=== PATIENT | female | born 1985 | race Caucasian/White ===

== ENCOUNTER 2021-06-16 08:48 | Emergency (ER) | payer OTHER ==
[2021-06-16 09:14] LABS: Hematocrit 43.2 % (36.0-45.0); Lymphocytes % 26.3 % (15.3-44.8); MPV 8.9 fL (7.6-11.3); RBC Red Blood Cell Count 4.96 M/uL (3.86-4.86)
[2021-06-16] MEDS ORDERED: MORPHINE 4 MG/ML SYR ONE ×2 (09:17→14:33)
[2021-06-16] MEDS ORDERED: ONDANSETRON 4 MG/2 ML VIAL ONE (09:17)
[2021-06-16 09:32] LABS: Bilirubin Direct 0.1 mg/dL (0-0.2); Bilirubin Total 0.6 mg/dL (0.2-1.0); Potassium 3.4 mmol/L (3.5-5.1); Protein, Total 8.2 g/dL (6.4-8.2)
[2021-06-16 10:23] LABS: Urine Blood 2+ (Negative); Urine Glucose Negative (Negative); Urine Protein Negative (Negative); Urine Specific Gravity 1.025 (1.005-1.030); Urine pH 5.5 (5.0-7.0)
--- NOTE | 2021-06-16 10:42 | RAD REPORT ---
EXAM DESCRIPTION: CT - Stone Protocol - 06/16/2021 10:28 am CLINICAL HISTORY: Flank pain. FLANK PAIN COMPARISON: No comparisons TECHNIQUE: Axial images were obtained without oral or IV contrast. Lack of contrast limits solid org an and vascular assessment. The [id number] spans the entirety of the system partially obscuring uppermost abdomen and lung bases. Coronal reformatted images were obtained and reviewed. All CT scans are performed using dose optimization technique as appropriate and may include automated exposure control or mA/KV adjustment according to patient size. FINDINGS: The lower lung montilla are clear. Imaged portions of the liver and spleen show no suspicious findings on non-contrast imaging. The panc reas and adrenal glands are normal. No pathologic lymphadenopathy in the abdomen or pelvis. Punctate stone is present in the inferior calyx left kidney. No additional tract stone or hydronep hrosis. No bowel obstruction, free air, free fluid or abscess. Normal appendix noted. No significant bony abnormality. IMPRESSION: Punctate calculus inferior left kidney without hydronephrosis.
[2021-06-16 10:53] LABS: Urine Specific Gravity/Preg 1.025 (1.005-1.030)
[2021-06-16] MEDS ORDERED: KETOROLAC 30 MG/ML INJ ONE (11:31)
[2021-06-16] MEDS ORDERED: DIAZEPAM 10 MG/2 ML INJ SYRINGE ONE (11:32)
--- NOTE | 2021-06-16 14:16 | RAD REPORT ---
EXAM DESCRIPTION: CT - Chest For Pe Angio - 06/16/2021 1:46 pm CLINICAL HISTORY: Chest pain. left sided sub scapular pain, sob COMPARISON: <Comparisons> TECHNIQUE: CT angiogram of the pulmonary arteries was performed with MIP. All CT scans are performed using dose optimization technique as appropriate and may include automated exposure control or mA/KV adjustment according to patient size. FINDINGS: No evidence of pulmonary thromboembolism. No acute aortic finding demonstrated. The lungs are clear. No significant pericardial or pleural fluid. No concerning bony finding. Fatty liver noted. IMPRESSION: No evidence of pulmonary thromboembolism. No acute lung findings.
--- NOTE | 2021-06-16 14:41 | EDPHYS ---
Physician Documentation [facility] Name: Adela Jaime Age: 35 yrs Sex: Female : 1985 Arrival Date: 06/16/2021 Time: 08:52 Bed 18 Private MD: ED Physician Herbert Terrazas HPI: 06/16 08:55 This 35 yrs old Female presents to ER via Ambulatory with complaints of Low Back Pain. [facility] 08:55 The patient presents with pain that is acute. The symptoms are located in the left jmm scapular area, left subscapular area and left mid back. Onset: The symptoms/episode began/occurred gradually, 1 day(s) ago. Modifying factors: The patient symptoms are alleviated by nothing, the patient symptoms are aggravated by any movement. This is a 35-year-old female with history of hypertension the presents emerged part with complaints of left-sided flank pain which radiates into the left lower quadrant of her abdomen. Denies vomiting, diarrhea, previous history of kidney stone.. 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 - Social history:: Smoking status: Patient denies any tobacco usage or history of. ROS: 08:55 Constitutional: Negative for fever, chills, and weight loss, Cardiovascular: Negative jmm for chest pain, palpitations, and edema, Respiratory: Negative for shortness of breath, cough, wheezing, and pleuritic chest pain. 08:55 Back: Positive for pain with movement. 08:55 All other systems are negative. Exam: 08:55 Head/Face: atraumatic. Eyes: EOMI, no conjunctival erythema appreciated ENT: Moist jmm Mucus Membranes Neck: Trachea midline, Supple Chest/axilla: Normal chest wall appearance and motion. Cardiovascular: Regular rate and rhythm. No edema appreciated Respiratory: Normal respirations, no respiratory distress appreciated 08:55 Abdomen/GI: Non distended, soft Back: Normal ROM Skin: General appearance color normal MS/ Extremity: Moves all extremities, no obvious deformities appreciated, no edema noted to the lower extremities Neuro: Awake and alert Psych: Behavior is normal, Mood is normal, Patient is cooperative and pleasant 08:55 Constitutional: The patient appears alert, awake, anxious, uncomfortable. 08:55 Abdomen/GI: Inspection: abdomen appears normal, Bowel sounds: normal, Palpation: abdomen is soft and non-tender, in the left lower quadrant. Vital Signs: 08:57 BP 184 / 120; Pulse 83; Resp 18; Temp 98.2; Pulse Ox 100% on R/A; Weight 129.27 kg; ph Height 5 ft. 0 in. 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 [facility] 13:27 ED course: Upon reevaluation the patient, she began to complain of left upper thoracic jmm pain which would radiate into the left lower part of her chest. States she had this pain all along and was recently driven from [place]. States having some mild shortness of breath as well. Will get a CTA for further evaluation.. 14:39 Data reviewed: vital signs, nurses notes. Counseling: I had a detailed discussion with katey the patient and/or guardian regarding: the historical points, exam findings, and any diagnostic results supporting the discharge/admit diagnosis, the need for outpatient follow up, to return to the emergency department if symptoms worsen or persist or if there are any questions or concerns that arise at home. 06/16 08:55 Order name: Basic Metabolic Panel; Complete Time: 09:38 [facility] 06/16 08:55 Order name: CBC with Diff; Complete Time: 09:38 [facility] 06/16 08:55 Order name: Hepatic Function; Complete Time: 09:38 [facility] 06/16 08:55 Order name: Lipase; Complete Time: 09:38 [facility] 06/16 10:22 Order name: Urine Dipstick-Ancillary; Complete Time: 10:27 [facility] 06/16 10:29 Order name: Urine --Ancillary (enter results); Complete Time: 10:54 eb 06/16 08:55 Order name: IV Saline Lock; Complete Time: 09:10 [facility] 06/16 10:17 Order name: CT Stone Protocol; Complete Time: 10:43 [facility] 06/16 13:27 Order name: CT Chest For PE Angio; Complete Time: 14:30 [facility] 06/16 08:55 Order name: Labs collected and sent; Complete Time: 09:10 [facility] 06/16 08:55 Order name: Urine Dipstick-Ancillary (obtain specimen); Complete Time: 10:24 [facility] 06/16 08:55 Order name: Urine Test (obtain specimen); Complete Time: 10:24 jm Administered Medications: 09:15 Drug: Zofran (Ondansetron) 4 mg Route: IVP; Site: right antecubital; jg9 09:45 Follow up: Response: No adverse reaction; Nausea is decreased jg9 09:19 Drug: morphine 4 mg {Note: RASS-0.} Route: IVP; Site: right antecubital; jg9 09:30 Follow up: Response: No adverse reaction; Pain is decreased jg9 11:35 Drug: Ketorolac 30 mg Route: IVP; Site: right antecubital; jg9 12:00 Follow up: Response: No adverse reaction; No change in condition jg9 11:37 Drug: Valium (diazepam) 2 mg {Note: RASS-0.} Route: IVP; Site: right antecubital; jg9 12:30 Follow up: Response: No adverse reaction; No change in condition jg9 14:36 Drug: morphine 4 mg {Note: RASS-0.} Route: IVP; Site: right antecubital; jg9 Point of Care Testing: Urine : 10:24 hCG Reading: Negative; Control Reading: Positive; jg9 Disposition: 21:23 Co-signature as Attending Physician, Herbert Terrazas DO I agree with the assessment and ms3 plan of care. Disposition Summary: 06/16/21 14:40 Discharge Ordered Location: Home jmm Condition: Stable jmm Diagnosis - Strain of muscle and tendon of back wall of thorax jmm - Strain of muscle, fascia and tendon of lower back jmm Followup: jmm - With: Private Physician - When: 2 - 3 days - Reason: Recheck today's complaints, Continuance of care, Re-evaluation by your physician Discharge Instructions: - Discharge Summary Sheet jm - Thoracic Strain jmm - Low Back Sprain or Strain Rehab-SportsMed jm Forms: - Medication Reconciliation Form [facility] - Thank You Letter jmm - Antibiotic Education jmm - Prescription Opioid Use jm Prescriptions: - Zanaflex 4 mg Oral Tablet - take 1 tablet by ORAL route every 8 hours As needed; 20 tablet; Refills: 0, jm Product Selection Permitted - Diclofenac Sodium 75 mg Oral Tablet Sustained Release - take 1 tablet by ORAL route 2 times per day; 30 tablet; Refills: 0, Product [facility] Selection Permitted Signatures: Dispatcher [employer] Larry Feliciano PA PA jmm Hall, Patricia, RN RN Herbert Lorenzana DO DO ms3 Khushi Stone RN RN jg9
--- NOTE | 2021-06-16 14:41 | ER ---
Nurse's Notes [facility] Name: Adela Jaime Age: 35 yrs Sex: Female : 1985 Arrival Date: 06/16/2021 Time: 08:52 Bed 18 Private MD: Diagnosis: Strain of muscle and tendon of back wall of thorax;Strain of muscle, fascia and tendon of lower back Presentation: 06/16 08:57 Chief complaint: Patient states: L mid back pain that radiates to abdomen, also reports ph trouble urinating and nausea, denies fever V/D. Coronavirus screen: Vaccine status: Patient reports being unvaccinated. Ebola Screen: No symptoms or risks identified at this time. Initial Sepsis Screen: Does the patient meet any 2 criteria? No. Patient's initial sepsis screen is negative. Does the patient have a suspected source of infection? No. Patient's initial sepsis screen is negative. Risk Assessment: Do you want to hurt yourself or someone else? Patient reports no desire to harm self or others. Onset of symptoms was June 16, 2021. 08:57 Method Of Arrival: Ambulatory ph 08:57 Acuity: TARA 2 ph Triage Assessment: 09:11 General: Appears in no apparent distress. Behavior is calm. Pain: Complains of pain in jg9 back-right flank Pain currently is 9 out of 10 on a pain scale. 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 - Social history:: Smoking status: Patient denies any tobacco usage or history of. Screenin:10 Abuse screen: Denies threats or abuse. Denies injuries from another. Nutritional jg9 screening: No deficits noted. Tuberculosis screening: No symptoms or risk factors identified. Fall Risk None identified. Assessment: 09:51 Reassessment: Patient reports her pain subsided just a little, she is now a 8/10. jg9 Vital Signs: 08:57 BP 184 / 120; Pulse 83; Resp 18; Temp 98.2; Pulse Ox 100% on R/A; Weight 129.27 kg; ph Height 5 ft. 0 in. 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 rg4 08:52 Larry Mendes PA is PHCP. [facility] 08:52 Herbert Terrazas DO is Attending Physician. [facility] 08:56 Khushi Stone, GRACE is Primary Nurse. j9 08:59 Triage completed. ph 08:59 Arm band placed on Patient placed in an exam room. ph 09:00 Patient has correct armband on for positive identification. Bed in low position. Call [facility] in reach. 09:07 Initial lab(s) drawn, by me, sent to lab. Inserted saline lock: 20 gauge in right dh3 antecubital area, using aseptic technique. Blood collected. 10:28 CT Stone Protocol In Process Unspecified. EDMS 13:20 No apparent distress. Resting quietly. Awaiting lab results, Awaiting radiology results.j9 13:45 CT Chest For PE Angio In Process Unspecified. EDMS 14:28 Resting quietly. Patient requests pain medication. jg9 14:42 No provider procedures requiring assistance completed. jg9 14:43 IV discontinued. jg9 Administered Medications: 09:15 Drug: Zofran (Ondansetron) 4 mg Route: IVP; Site: right antecubital; jg9 09:45 Follow up: Response: No adverse reaction; Nausea is decreased jg9 09:19 Drug: morphine 4 mg {Note: RASS-0.} Route: IVP; Site: right antecubital; jg9 09:30 Follow up: Response: No adverse reaction; Pain is decreased jg9 11:35 Drug: Ketorolac 30 mg Route: IVP; Site: right antecubital; jg9 12:00 Follow up: Response: No adverse reaction; No change in condition jg9 11:37 Drug: Valium (diazepam) 2 mg {Note: RASS-0.} Route: IVP; Site: right antecubital; jg9 12:30 Follow up: Response: No adverse reaction; No change in condition jg9 14:36 Drug: morphine 4 mg {Note: RASS-0.} Route: IVP; Site: right antecubital; jg9 Point of Care Testing: Urine : 10:24 hCG Reading: Negative; Control Reading: Positive; jg9 Outcome: 14:40 Discharge ordered by MD. [place] 14:43 Discharged to home ambulatory. jg9 14:43 Condition: stable 14:43 Discharge instructions given to patient, Instructed on discharge instructions, follow up and referral plans. Demonstrated understanding of instructions, follow-up care. 14:54 Patient left the ED. jg9 Signatures: Dispatcher [employer] EDMS Larry Mendes PA PA jmm Hall, Patricia, RN RN ph Garcia, Rubi 4 Sabine Crawford 3 Khushi Stone RN RN jg9
[2021-06-16 15:14] VITALS: BP 188/99; O2SAT 99
[2021-06-16 15:15] VITALS: TEMP 98.2
== END 2021-06-16 14:54 | disposition home or self-care (01) ==
LOC: ER 08:48
DX: S39.012A Strain of muscle, fascia and tendon of lower back, initial encounter (principal); S29.012A Strain of muscle and tendon of back wall of thorax, initial encounter; I10 Essential (primary) hypertension
CPT/HCPCS: 85025; 80048; 36415; 81025; 80076; 81003; 83690; 76377; 71275; 74176; 96375; 96374; 99284; Q9967; J3360; J2405

== ENCOUNTER 2021-11-01 08:42 | Emergency (ER) | payer OTHER ==
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
[2021-11-01 09:24] VITALS: BP 152/116; TEMP 97.8; O2SAT 99
== END 2021-11-01 09:10 | disposition home or self-care (01) ==
LOC: ER 08:42
DX: L55.9 Sunburn, unspecified (principal); T31.0 Burns involving less than 10% of body surface; R21 Rash and other nonspecific skin eruption
CPT/HCPCS: 99282

== ENCOUNTER 2022-01-11 08:36 | Day surgery (SDC) | payer OTHER ==
--- NOTE | 2022-01-07 09:28 | RAD REPORT ---
EXAM DESCRIPTION: RAD - Chest Pa And Lat (2 Views) - 01/07/2022 9:22 am CLINICAL HISTORY: pre op for surgery Chest pain. COMPARISON: Chest For Pe Angio dated 06/16/2021 FINDINGS: The lungs are clear. The heart is normal in size. No displaced fractures. IMPRESSION: No acute or concerning finding suspected.
[2022-01-07 09:35] LABS: Absolute Lymphocytes (CBC) 2.3 K/uL (0.7-4.9); Hematocrit 38.2 % (36.0-45.0); Lymphocytes % 32.4 % (15.3-44.8); MCV 86.7 fL (80-100); MPV 8.7 fL (7.6-11.3); RBC Red Blood Cell Count 4.41 M/uL (3.86-4.86)
[2022-01-07 09:47] LABS: Protime INR 1.28
[2022-01-07 09:48] LABS: Potassium 3.6 mmol/L (3.5-5.1)
[2022-01-07 09:58] LABS: SARS-CoV-2 Antigen Rapid Res Negative (Negative)
--- NOTE | 2022-01-09 06:38 | EKG ---
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
[2022-01-11] MEDS ORDERED: Ringers Lactate 1,000 ML IV ONE (09:07)
[2022-01-11] MEDS ORDERED: MIDAZOLAM HCL 2 MG/2 ML INJ ONE (10:14)
[2022-01-11] MEDS ORDERED: propofoL 200 MG/20 ML VIAL IV ONE (10:14)
[2022-01-11] MEDS ORDERED: dexAMETHasone 10 MG/ML VIAL ONE (10:14)
[2022-01-11] MEDS ORDERED: FENTANYL CITR 100 MCG/2 ML ONE (10:14)
[2022-01-11] MEDS ORDERED: KETOROLAC 30 MG/ML INJ ONE (10:15)
[2022-01-11] MEDS ORDERED: ONDANSETRON 4 MG/2 ML VIAL ONE (10:15)
[2022-01-11] MEDS ORDERED: LIDOCAINE 2% MPF 5 ML VIAL ONE (10:15)
[2022-01-11] MEDS ORDERED: CEFAZOLIN 2 GM IN 0.9% NACL 2 GM/100 ML BAG ONE (10:23)
[2022-01-11] MEDS ORDERED: BUPIVACAINE 0.25% PF 10 ML VIAL ONE ×2 (10:33→11:30)
--- NOTE | 2022-01-11 11:36 | P.BOP ---
Preoperative diagnosis: right carpal tunnel syndrome Postoperative diagnosis: same Primary procedure: right open carpal tunnel release Verifying Specialist: NONE,NONE Estimated blood loss: 3 cc Specimen: none Findings: see dictation Anesthesia: General Complications: None Implants: none Fluids & blood products: per anesthesia record Transferred to: Recovery Room Condition: Good
[2022-01-11] MEDS ORDERED: HYDROMORPHONE HCL 1 MG/ML INJ IV ONE ×2 (11:54→12:10)
[2022-01-11] MEDS ORDERED: HYDROMORPHONE HCL 1 MG/ML INJ ONE ×2 (12:03→12:20)
[2022-01-11 12:58] VITALS: BP 120/73; TEMP 98.1; O2SAT 95
[2022-01-11] MEDS ORDERED: HYDROCODONE/APAP 10/325 TAB ONE (12:59)
--- NOTE | 2022-01-12 03:57 | OP ---
Date of Procedure: 01/11/2022 Surgeon: Arturo Rubio MD Preoperative Diagnosis: Right carpal tunnel syndrome. Postoperative Diagnosis: Right carpal tunnel syndrome. Procedure Performed: Right open carpal tunnel release. Anesthesia: General LMA. Fluids: Per Anesthesia record. Estimated Blood Loss: 3 cc. Complications: None. Implants: None. Tourniquet Time: 17 minutes at 250 mmHg. Indication For Procedure: Adela is a 36-year-old female who presented to my clinic with signs, sym ptoms and EMG findings consistent with severe bilateral carpal tunnel syndrome. Her right was more s ymptomatic than the left so we will proceed with the right. Risks and benefits associated with the p rocedure were discussed with the patient at length and she expressed understanding and elected to pro ceed with operative treatment. Description Of Procedure: After informed consent was obtained, the patient was identified in the pre operative holding area and the right upper extremity was marked. The patient was then brought back t o the operating room, transferred the operative table in supine fashion, and placed under general LMA anesthesia. The right upper extremity was then prepped and draped in usual sterile fashion. A time -out was initiated. The correct patient and procedure confirmed and identified. The patient did rec eive her preoperative prophylactic antibiotics. The right upper extremity was then exsanguinated and tourniquet was inflated to 250 mmHg. Approximately, a 3 cm longitudinal incision was made just ulna r to the thenar crease. Dissection was then taken down to the palmar fascia. A Aurora elevator was p laced deep to the palmar fascia and transverse carpal ligament to protect the median nerve at all chela es. A 15 blade was then used to release the palmar fascia and transverse carpal ligament with the me mila nerve protected by the Aurora elevator at all times. Blunt-tip Metzenbaums were then used to rel ease any remaining fascial bands with the tips aimed superficially to protect the median nerve at all times. The wound was then irrigated thoroughly with normal saline. The skin was approximated using a 5-0 Prolene. Sterile dressings were applied. Tourniquet was let down. The patient was awakened and transferred back in stable condition. Postoperative Plan: The patient will be nonweightbearing to right upper extremity. She will follow up in 1 week for wound check and suture removal. CV/MODL Voice ID: [id number] Report ID: [id number]
== END 2022-01-11 13:23 | disposition home or self-care (01) ==
LOC: OR 08:36
PROVIDERS: ATTEND Orthopaedic Surgery Sports Medicine
PROC: 01N50ZZ Release Median Nerve, Open Approach (ICD-10-PCS; principal; 2022-01-11 10:30)
DX: G56.01 Carpal tunnel syndrome, right upper limb (principal); E11.9 Type 2 diabetes mellitus without complications; I10 Essential (primary) hypertension; Z20.822 Contact with and (suspected) exposure to COVID-19
CPT/HCPCS: 93005; 85025; 80048; 36415; 81025; 85610; 85730; 71046; 87811; 64721; J2704; J2001; J2250; J3010; J1100; J1170 ×4; J0690; J7120; J2405

== ENCOUNTER 2022-01-17 17:40 | Emergency (ER) | payer OTHER ==
--- OUTSIDE RECORDS SUMMARY | 2022-01-17 17:44 | XMS REPORT | Continuity of Care Document ---
:1985 Author Organization [facility] t Address [address] [place] [address] Care Team Providers Name Role Phone SINDI JIMENEZ Primary Care Physician Unavailable Sindi Jimenez Attending Clinician Unavailable KENNETH SCHMITZ Attending Clinician Unavailable Kenneth Schmitz MD Attending Clinician Doctor Unassigned, [facility] Attending Clinician Unavailable VIC TONG Attending Clinician Unavailable Vic Melchor Attending Clinician SARAH SHAH Attending Clinician Unavailable Sarah Shah MD Attending Clinician YENNY KELLER Admitting Clinician Unavailable Payers Payer Name Policy Type Policy Number Effective Date Expiration Date [place] [address] [id number] [facility] [id number] 2021 00:00:00 Problems Condition Condition Condition Status Onset Resolution Last Treating Co mments Source Name Details Category Date Date Treatment Clinician Date No known No known Disease Unive rs active active ity of problems problems [facility] [id number] Migraine Problem Common with aura Spirit and [facility] without [facility] migrainosu Medica l s, not Center intractabl e [id number] Primary Problem Common insomnia [facility] [id number] Morbid Problem Commo n 9104 (severe) Spirit obesity - CHI due to [facility] [id number] [place] [address] tunnel [facility] syndrome - [facility] of right [facility] [id number] [place] [address] tunnel Spirit syndrome - [facility] of left wrist [facility] [id number] OSKAR Problem Common (generaliz Spirit ed anxiety - CHI disorder) [facility] [id number] Essential Problem Comm on (primary) Spirit hypertensi - CHI on [facility] [id number] Body mass Problem Com mon index Spirit [BMI] - CHI 50.0-59.9, [facility] [id number] Bilateral Problem Comm on carpal Spirit tunnel - [facility] syndrome [facility] Allergies, Adverse Reactions, Alerts Allergy Allergy Status Severity Reaction(s) Onset Inactive Treating Comm ents Source Name Type Date Date Clinician NO KNOWN Drug Active Univers ALLERGIE Class ity of [facility] Social History Social Habit Start Date Stop Date Quantity Comments Source History of Tobacco [facility] Use [facility] Sex Assigned At Common Sp home - [facility] Exposure to 2021-11-19 2021-11-29 Not sure [facility] SARS-CoV-2 (event) 00:00:00 09:37:00 [facility] Smoking Status Start Date Stop Date Source Tobacco smoking [facility] xa consumption unknown Medical Bran ch Former Smoker 2021-12-10 00:00:00 2021-12-10 [facility] Sp[facility] t [facility] St 00:00:00 [facility] Ce nter Medications Ordered Filled Start Stop Current Ordering Indication Dosage Frequency Signature Comments Components Source Medication Medication Date Date Medication? Clinician (SIG) Name Name Acetaminoph Acetaminoph No 1{table Acetaminop en-Codeine en-Codeine 9-20 t_as_ne hen-Codein #3 300-30 #3 300-30 00:00: eded} e #3 MG MG 00 300-30 MG Acetaminoph Acetaminoph No 1{table Acetaminop en-Codeine en-Codeine 9-20 t_as_ne hen-Codein #3 300-30 #3 300-30 00:00: eded} e #3 MG MG 00 300-30 MG Acetaminoph Acetaminoph 2021-0 No 1{table Acetaminop en-Codeine en-Codeine 9-20 t_as_ne hen-Codein #3 300-30 #3 300-30 00:00: eded} e #3 MG MG 00 300-30 MG Dextrometho Dextrometho 2021-0 No 10{ml_a QID Dextrometh rphan-guaiF rphan-guaiF 8-04 s_neede orphan-gua ENesin ENesin 00:00: d} iFENesin 15-200 15-200 00 15-200 MG/5ML MG/5ML MG/5ML Dextrometho Dextrometho 2021-0 No 10{ml_a QID Dextrometh rphan-guaiF rphan-guaiF 8-04 s_neede orphan-gua ENesin ENesin 00:00: d} iFENesin 15-200 15-200 00 15-200 MG/5ML MG/5ML MG/5ML Dextrometho Dextrometho 2021-0 No 10{ml_a QID Dextrometh rphan-guaiF rphan-guaiF 8-04 s_neede orphan-gua ENesin ENesin 00:00: d} iFENesin 15-200 15-200 00 15-200 MG/5ML MG/5ML MG/5ML predniSONE predniSONE 2021-0 No 2{table QD predniSONE 20 MG 20 MG 7-28 t} 20 MG 00:00: 00 Tessalon Tessalon 2021-0 No 1{capsu TID Tessalon Perles 100 Perles 100 7-28 le_as_n Perles 100 MG MG 00:00: eeded} MG 00 predniSONE predniSONE 2021-0 No 2{table QD predniSONE 20 MG 20 MG 7-28 t} 20 MG 00:00: 00 Tessalon Tessalon 2021-0 No 1{capsu TID Tessalon Perles 100 Perles 100 7-28 le_as_n Perles 100 MG MG 00:00: eeded} MG 00 predniSONE predniSONE 2021-0 No 2{table QD predniSONE 20 MG 20 MG 7-28 t} 20 MG 00:00: 00 Tessalon Tessalon No 1{capsu TID Tessalon Perles 100 Perles 100 11-15 le_as_n Perles 100 MG MG 00:00: eeded} MG 00 sulfamethox 2021- No 1{tbl} 1 tablet, Univers azole-trime 10-16 Oral, ONCE i ty of thoprim 02:00: 00:56 NOW, 1 [place] (BACTRIM 00 :00 dose, On Medical DS) 800-160 Mon Branch mg per 10/15/21 at tablet 1 2100, tablet MALISSA
Re ason for Anti-Infec tive: Documented Infection< br>Documen anil Infection Site: Skin / Soft Tissue
Duration of Therapy: 7 days HYDROcodone 2021- No 1{tbl} 1 tablet, Univers -acetaminop 10-16 Oral, ONCE i ty of hen (NORCO) 02:00: 00:56 NOW, 1 [place] as 10-325 mg 00 :00 dose, On Medica l tablet 1 Mon Branch tablet 10/15/21 at 2100, Routine sulfamethox 2021- No [id number] 1{tbl} Take 1 Univers azole-trime 10-15-05 tablet by it y of thoprim 00:00: 04:59 mouth [place] 800-160 mg 00 :00 every 12 Medic al per tablet (twelve) Branc h hours for 7 days. acetaminoph 2021- No [id number] 1{tbl} Take 1 U nivers en-codeine 10-15 tablet by ity of 300-30 mg 00:00: 04:59 mouth [place] tablet 00 :00 every 6 Medical (six) Branch hours as needed for Pain (scale 7-10) for up to 7 days. Indication s: acute pain predniSONE Yes [id number] 20mg Take 1 U nivers 20 mg 5-21 tablet by ity of tablet 00:00: mouth [place] 00 daily. Medical Branch predniSONE Yes [id number] 20mg Take 1 U nivers 20 mg 5-21 tablet by ity of tablet 00:00: mouth [place] 00 daily. Medical Branch predniSONE Yes [id number] 20mg Take 1 U nivers 20 mg 5-21 tablet by ity of tablet 00:00: mouth [place] 00 daily. Medical Branch predniSONE Yes [id number] 20mg Take 1 U nivers 20 mg 5-21 tablet by ity of tablet 00:00: mouth [place] 00 daily. Medical Branch HYDROcodone 2021- No [id number] 1{tbl} Take 1 U nivers -acetaminop 5-21 05-29 tablet by it y of hen (NORCO) 00:00: 04:59 [place] 7.5-325 mg 00 :00 every 8 Medica l per tablet (eight) Branch hours as needed for Pain for up to 7 days. Indication s: acute pain Butalbital- Butalbital- No Butalbital APAP-Caffei APAP-Caffei 5-10 -APAP-Caff ne ne 00:00: eine 50-325-40 50-325-40 00 50-325-40 MG MG MG Butalbital- Butalbital- No Butalbital APAP-Caffei APAP-Caffei 5-10 -APAP-Caff ne ne 00:00: eine 50-325-40 50-325-40 00 50-325-40 MG MG MG Butalbital- Butalbital- No Butalbital APAP-Caffei APAP-Caffei 5-10 -APAP-Caff ne ne 00:00: eine 50-325-40 50-325-40 00 50-325-40 MG MG MG amLODIPine amLODIPine No amLODIPine Besylate 5 Besylate 5 Besylate 5 MG MG MG Meloxicam Meloxicam No 1{table QD Meloxicam 7.5 MG 7.5 MG t} 7.5 MG Prazosin Prazosin No Prazosin HCl 2 MG HCl 2 MG HCl 2 MG FLUoxetine FLUoxetine No FLUoxetine HCl 40 MG HCl 40 MG HCl 40 MG amLODIPine amLODIPine No amLODIPine Besylate 5 Besylate 5 Besylate 5 MG MG MG tiZANidine tiZANidine No 1{table TID tiZANidine HCl 4 MG HCl 4 MG t_as_ne HCl 4 MG eded} metFORMIN metFORMIN No metFORMIN HCl ER 500 HCl ER 500 HCl ER 500 MG MG MG Losartan Losartan No 1{table QD Losartan Potassium Potassium t} Potassium 100 MG 100 MG 100 MG cloNIDine cloNIDine No cloNIDine HCl 0.3 MG HCl 0.3 MG HCl 0.3 MG Meloxicam Meloxicam No 1{table QD Meloxicam 7.5 MG 7.5 MG t} 7.5 MG busPIRone busPIRone No busPIRone HCl 10 MG HCl 10 MG HCl 10 MG Silver Silver No 1{appli BID Silver sulfADIAZIN sulfADIAZIN cation} sulfADIAZI E 1 % E 1 % NE 1 % Carvedilol Carvedilol No Carvedilol 12.5 MG 12.5 MG 12.5 MG FLUoxetine FLUoxetine No FLUoxetine HCl 40 MG HCl 40 MG HCl 40 MG Prazosin Prazosin No Prazosin HCl 2 MG HCl 2 MG HCl 2 MG busPIRone busPIRone No busPIRone HCl 10 MG HCl 10 MG HCl 10 MG tiZANidine tiZANidine No 1{table TID tiZANidine HCl 4 MG HCl 4 MG t_as_ne HCl 4 MG eded} metFORMIN metFORMIN No metFORMIN HCl ER 500 HCl ER 500 HCl ER 500 MG MG MG Carvedilol Carvedilol No Carvedilol 12.5 MG 12.5 MG 12.5 MG Losartan Losartan No 1{table QD Losartan Potassium Potassium t} Potassium 100 MG 100 MG 100 MG cloNIDine cloNIDine No cloNIDine HCl 0.3 MG HCl 0.3 MG HCl 0.3 MG Silver Silver No 1{appli BID Silver sulfADIAZIN sulfADIAZIN cation} sulfADIAZI E 1 % E 1 % NE 1 % amLODIPine amLODIPine No amLODIPine Besylate 5 Besylate 5 Besylate 5 MG MG MG Meloxicam Meloxicam No 1{table QD Meloxicam 7.5 MG 7.5 MG t} 7.5 MG FLUoxetine FLUoxetine No FLUoxetine HCl 40 MG HCl 40 MG HCl 40 MG Prazosin Prazosin No Prazosin HCl 2 MG HCl 2 MG HCl 2 MG busPIRone busPIRone No busPIRone HCl 10 MG HCl 10 MG HCl 10 MG tiZANidine tiZANidine No 1{table TID tiZANidine HCl 4 MG HCl 4 MG t_as_ne HCl 4 MG eded} metFORMIN metFORMIN No metFORMIN HCl ER 500 HCl ER 500 HCl ER 500 MG MG MG Carvedilol Carvedilol No Carvedilol 12.5 MG 12.5 MG 12.5 MG Losartan Losartan No 1{table QD Losartan Potassium Potassium t} Potassium 100 MG 100 MG 100 MG cloNIDine cloNIDine No cloNIDine HCl 0.3 MG HCl 0.3 MG HCl 0.3 MG Silver Silver No 1{appli BID Silver sulfADIAZIN sulfADIAZIN cation} sulfADIAZI E 1 % E 1 % NE 1 % Vital Signs Vital Name Observation Time Observation Value Comments Source Systolic blood 2021-10-16 00:34:00 159 mm[Hg] [facility]iver [facility] [place] Diastolic blood 2021-10-16 00:34:00 120 mm[Hg] Unive rsity of [facility] Heart rate 2021-10-16 00:34:00 83 /min [facility] [place] [facility] [place] Body temperature 2021-10-16 00:34:00 37.11 Bessy [facility] Respiratory rate 2021-10-16 00:34:00 18 /min [facility] Body height 2021-10-16 00:34:00 152.4 cm [facility] [place] Body weight 2021-10-16 00:34:00 135.172 kg [facility] [place] BMI 2021-10-16 00:34:00 58.20 kg/m2 [facility] [place] [facility] Oxygen saturation in 2021-10-16 00:34:00 97 /min University of Arterial blood by [facility] Pulse oximetry Branch Body weight 2021-09-08 14:03:00 133.811 kg [facility] [place] [facility] [place] BMI 2021-09-08 14:03:00 57.61 kg/m2 [facility] [place] [facility] Oxygen saturation in 2021-09-08 14:03:00 96 /min University of Arterial blood by [facility] Pulse oximetry Branch Systolic blood 2021-09-08 14:03:00 150 mm[Hg] Univer [facility]ity of [facility][note 2] Branch Diastolic blood 2021-09-08 14:03:00 111 mm[Hg] Unive [facility] [place] Heart rate 2021-09-08 14:03:00 83 /min [facility] [place] Body temperature 2021-09-08 14:03:00 36.94 Bessy [facility] Respiratory rate 2021-09-08 14:03:00 22 /min [facility] [place] [facility] Body height 2021-09-08 14:03:00 152.4 cm [facility] Medical Branch Procedures Procedure Date / Time Performed Performing Clinician Fe denver ASSIGNMENT OF BENEFITS 2021-11-29 14:39:09 Doctor Unassigned, No [facility] Name Medical Branch CONSENT/REFUSAL FOR 2021-10-16 00:23:13 Doctor Unassigned, No [facility] Name Medical Branch TREATMENT NOTICE OF PRIVACY 2021-09-08 13:58:17 Doctor Unassigned, No [facility] Name Medical Branch CONSENT/REFUSAL FOR 2021-09-08 13:57:48 Doctor Unassigned, No [facility] AND Name Medical Branch TREATMENT Encounters Start End Encounter Admission Attending Care Care Encounter Source Date/Time Date/Time Type Type Clinicians Facility Department ID 2022-01-15 Outpatient Jimenez, STLMLC STLMLC [id number] Common 09:34:02 [facility] 2021-12-10 Outpatient Jimenez, STLMLC STLMLC [id number] Common 17:00:02 Sindi [facility] 2021-11-14 Outpatient Jimenez, STLMLC STLMLC [id number] Common 10:29:03 Sindi [facility] 2021-11-13 Outpatient Jimenez, STLMLC STLMLC [id number] Common 08:57:02 Sindi [facility] 2021-10-15 Outpatient Jimenez, STLMLC STLMLC [id number] Common 14:19:01 Sindi [facility] 2021-10-08 Outpatient Jimenez, STLMLC STLMLC [id number] Common 09:17:02 Sindi [facility] 2021-10-05 Outpatient Jimenez, STLMLC STLMLC [id number] Common 09:26:02 Sindi [facility] 2021-10-04 Outpatient Jimenez, STLMLC STLMLC [id number] Common 13:35:01 Sindi [facility] 2021-09-10 Outpatient Jimenez, STLMLC STLMLC [id number] Common 08:47:15 Sindi [facility] 2021-09-04 Outpatient Jimenez, STLMLC STLMLC [id number] Common 14:17:11 Sindi [facility] 2021-08-21 Outpatient Jimenez, STLMLC STLMLC [id number] Common 08:15:04 Sindi [facility] 2021-07-12 Outpatient Jimenez, STLMLC STLMLC [id number] Common 10:36:03 Sindi [facility] 2022-01-16 2022-01-16 (TEL) STLMLC STLMLC [id number] Co mmon 00:00:00 00:00:00 [facility] 2022-01-14 2022-01-14 (TEL) STLMLC STLMLC [id number] Co mmon 00:00:00 00:00:00 [facility] 2022-01-08 2022-01-08 (TEL) STLMLC STLMLC [id number] Co mmon 00:00:00 00:00:00 [facility] 2021-12-19 2021-12-19 ambulatory STLMLC STLMLC [id number] Common 00:00:00 00:00:00 [facility] 2021-12-13 2021-12-13 Outpatient Rashmi SCHMITZ [facility] [id number] Univers 13:00:00 13:00:00 KENNETH [id number] [facility] 2021-12-12 2021-12-12 ambulatory STLMLC STLMLC [id number] Common 00:00:00 00:00:00 [facility] 2021-12-10 2021-12-10 ambulatory STLMLC STLMLC [id number] Common 00:00:00 00:00:00 [facility] 2021-12-05 2021-12-05 ambulatory STLMLC STLMLC [id number] Common 00:00:00 00:00:00 [facility] 2021-11-29 2021-11-29 [facility] [id number] Univers 09:40:27 23:59:00 KENNETH ity [facility] 2021-11-29 2021-11-29 [facility] [id number] Univers 09:40:27 23:59:00 Encounter Kenneth [facility] [id number] [place]y [id number] [id number] [facility] 038 Branch OFFICE BUILDING 2021-11-29 2021-11-29 Orders Doctor CINDY [id number] Univers 00:00:00 00:00:00 Only Unassigned, WYATT [id number] [facility] [id number] [place] [id number] [facility] 009 Branch 2021-11-15 2021-11-15 ambulatory STLMLC STLMLC [id number] Common 00:00:00 00:00:00 [facility] 2021-10-19 2021-10-19 ambulatory STLMLC STLMLC [id number] Common 00:00:00 00:00:00 [facility] 2021-10-16 2021-10-16 ambulatory STLMLC STLMLC [id number] Common 00:00:00 00:00:00 [facility] 2021-10-15 2021-10-15 Emergency X TONG, [facility] ERT [id number] Univers 19:36:00 20:05:00 VIC bharathicarlos alberto [facility] 2021-10-15 2021-10-15 Emergency [facility] [id number] Univers 19:36:00 20:05:00 Vic ELIZALDE [id number] i [id number] [id number] [facility] 084 Branch 2021-10-12 2021-10-12 ambulatory STLMLC STLMLC [id number] Common 00:00:00 00:00:00 [facility] 2021-10-04 2021-10-04 ambulatory STLMLC STLMLC [id number] Common 00:00:00 00:00:00 [facility] 2021-09-12 2021-09-12 ambulatory STLMLC STLMLC [id number] Common 00:00:00 00:00:00 [facility] 2021-09-08 2021-09-08 Emergency [facility] [id number] Univers 09:05:00 10:50:00 SARAH jorge [facility] 2021-09-08 2021-09-08 Emergency [facility] [id number] Univers 09:05:00 10:50:00 Sarah ELIZALDE [id number] i christine [facility] [id number] [facility] [id number] [place] [address] Branch 2021-09-06 2021-09-06 ambulatory STLMLC STLMLC [id number] Common 00:00:00 00:00:00 [facility] 2021-07-12 2021-07-12 ambulatory STLMLC STLMLC [id number] Common 00:00:00 00:00:00 [facility] Results This patient has no known results.
--- NOTE | 2022-01-17 18:16 | ER ---
Nurse's Notes [facility] Name: Adela Jaime Age: 36 yrs Sex: Female : 1985 Arrival Date: 01/17/2022 Time: 17:44 Bed 12 Private MD: Diagnosis: Hand Laceration/ Open wound of hand Presentation: 01/17 17:48 Chief complaint: Patient states: carpel tunnel SX on Friday, was pulling her pants up jh5 today at home and popped her stitches in hand open. Coronavirus screen: Vaccine status: Patient reports being unvaccinated. Client denies travel out of the [place] in the last 14 days. Ebola Screen: Patient negative for fever greater than or equal to 101.5 degrees Fahrenheit, and additional compatible Ebola Virus Disease symptoms Patient denies exposure to infectious person. Patient denies travel to an Ebola-affected area in the 21 days before illness onset. Initial Sepsis Screen: Does the patient meet any 2 criteria? No. Patient's initial sepsis screen is negative. Does the patient have a suspected source of infection? No. Patient's initial sepsis screen is negative. Risk Assessment: Do you want to hurt yourself or someone else? Patient reports no desire to harm self or others. Onset of symptoms was January 17, 2022. 17:48 Method Of Arrival: Ambulatory [facility] 17:48 Acuity: TARA 3 jh5 Triage Assessment: 17:50 General: Appears in no apparent distress. comfortable, obese, well groomed, Behavior is 5 calm, cooperative, appropriate for age. Pain: Denies pain. 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 - Social history:: Smoking status: Patient denies any tobacco usage or history of. Screenin:16 Abuse screen: Denies threats or abuse. Denies injuries from another. Nutritional kb3 screening: No deficits noted. Tuberculosis screening: No symptoms or risk factors identified. Fall Risk None identified. Assessment: 17:55 General: See triage note. kb3 17:55 Pain: Denies pain. kb3 Vital Signs: 17:48 Resp 20; Temp 98.6; Pulse Ox 100% ; Weight 136.08 kg; Height 5 ft. 0 in. (152.40 cm); 5 Pain 0/10; 17:48 Body Mass Index 58.59 (136.08 kg, 152.40 cm) 5 ED Course: 17:44 Patient arrived in ED. dt4 17:46 [facility] 17:46 Jean Bunn MD is Attending Physician. [facility] 17:50 Triage completed. 5 17:50 Arm band placed on left wrist. [facility] 17:53 Claudia Mckenna, RN is Primary Nurse. kb3 18:14 Arturo Rubio MD is Referral Physician. [facility] 18:14 No provider procedures requiring assistance completed. Patient did not have IV access kb3 during this emergency room visit. Dressings: Steri strips 1/4 " Ynuier wrap. 18:15 Wound care: to Surgical located on heel of right hand was cleaned with Hibiclens, kb3 dressed with 3" yunier wrap, 1/4" steri-strips x5 applied. 18:16 Patient has correct armband on for positive identification. Bed in low position. Call kb3 light in reach. Administered Medications: No medications were administered Medication: 18:16 VIS not applicable for this client. kb3 Outcome: 18:15 Discharge ordered by . [facility] 18:19 Discharged to home ambulatory. kb3 18:19 Condition: good 18:19 Discharge instructions given to patient, Instructed on discharge instructions, follow up and referral plans. Demonstrated understanding of instructions. 18:19 Patient left the ED. kb3 Signatures: Larry Mendes PA PA jmm Rees, Jessica, RN RN 5 Claudia Mckenna, RN RN kb3 Gilda Colindres dt4
--- NOTE | 2022-01-17 18:16 | EDPHYS ---
Physician Documentation [facility] Name: Adela Jaime Age: 36 yrs Sex: Female : 1985 Arrival Date: 01/17/2022 Time: 17:44 Bed 12 Private MD: ED Physician Jean Bunn HPI: 01/17 17:52 This 36 yrs old Female presents to ER via Ambulatory with complaints of POST SURGICAL jmm SUTURES OPEN. 17:52 Onset: The symptoms/episode began/occurred acutely, just prior to arrival. This is a 36 jmm year old female with a history of htn, depression, s/p ctr that presents to the ED with dehischisense of incision side at the palm of the right hand. Denies fever, purulent drainage. . 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 - Social history:: Smoking status: Patient denies any tobacco usage or history of. ROS: 17:52 Constitutional: Negative for fever, chills, and weight loss, Cardiovascular: Negative jmm for chest pain, palpitations, and edema, Respiratory: Negative for shortness of breath, cough, wheezing, and pleuritic chest pain. 17:52 Skin: Positive for laceration(s). 17:52 All other systems are negative. Exam: 17:52 Constitutional: This is a well developed, well nourished patient who is awake, alert, jmm and in no acute distress. Head/Face: atraumatic. Eyes: EOMI, no conjunctival erythema appreciated ENT: Moist Mucus Membranes Neck: Trachea midline, Supple Chest/axilla: Normal chest wall appearance and motion. Cardiovascular: Regular rate and rhythm. No edema appreciated Respiratory: Normal respirations, no respiratory distress appreciated Abdomen/GI: Non distended Back: Normal ROM 17:52 Skin: wound dehischense noted to the palm of the right hand, no purulent drainage appreciated, no surrounding erythema appreciated. . 17:52 Neuro: Orientation: is normal, Mentation: is normal, Memory: is normal. 17:52 Psych: Behavior/mood is pleasant, cooperative. Vital Signs: 17:48 Resp 20; Temp 98.6; Pulse Ox 100% ; Weight 136.08 kg; Height 5 ft. 0 in. (152.40 cm); 5 Pain 0/10; 17:48 Body Mass Index 58.59 (136.08 kg, 152.40 cm) [facility] MDM: 17:52 Patient medically screened. [facility] 18:14 Data reviewed: vital signs, nurses notes. Counseling: I had a detailed discussion with jaspal the patient and/or guardian regarding: the historical points, exam findings, and any diagnostic results supporting the discharge/admit diagnosis, the need for outpatient follow up, to return to the emergency department if symptoms worsen or persist or if there are any questions or concerns that arise at home. 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 I agree with assessment [id number] and care plan and confirm the diagnosis (es) above. Attestation: The patient's history, exam findings, diagnostics, and a summary of any interventions or procedures was reviewed in detail with Larry HOLMAN. Disposition Summary: 01/17/22 18:15 Discharge Ordered Location: Home [facility] Condition: Stable [facility] Diagnosis - Hand Laceration/ Open wound of hand [facility] Followup: [facility] - With: Arturo Rubio MD - When: 2 - 3 days - Reason: Recheck today's complaints, Continuance of care, Re-evaluation by your physician Discharge Instructions: - Discharge Summary Sheet [facility] - Nonsutured Laceration Care [facility] Forms: - Medication Reconciliation Form [facility] - Thank You Letter [facility] - Antibiotic Education [facility] - Prescription Opioid Use [facility] Signatures: Larry Mendes PA PA jmm Rees, Jessica, RN RN [id number] Jean Bunn MD MD [id number]
[2022-01-18 20:41] VITALS: TEMP 98.6; O2SAT 100
== END 2022-01-17 18:19 | disposition home or self-care (01) ==
LOC: ER 17:40
DX: T81.30XA Disruption of wound, unspecified, initial encounter (principal)
CPT/HCPCS: 99282

== ENCOUNTER 2022-06-08 14:40 | Emergency (ER) | payer OTHER ==
--- OUTSIDE RECORDS SUMMARY | 2022-06-08 14:48 | XMS REPORT | Continuity of Care Document ---
:1985 Author Organization [facility] t Address [address] [place] [address] Care Team Providers Name Role Phone SINDI PLATA Primary Care Physician Unavailable Sindi Plata Attending Clinician Unavailable Naveen GEORGE Attending Clinician Unavailable Elgin Ball MD Attending Clinician Naveen Hansen Attending Clinician KENNETH SCHMITZ Attending Clinician Unavailable Kenneth Schmitz MD Attending Clinician Doctor Unassigned, [place] Attending Clinician Unavailable VIC TONG Attending Clinician Unavailable Vic Melchor Attending Clinician Sarah Rocha MD Attending Clinician SARAH ROCHA Attending Clinician Unavailable Naveen GEORGE Admitting Clinician Unavailable YENNY KELLER Admitting Clinician Unavailable Payers Payer Name Policy Type Policy Number Effective Date Expiration Date [place] [address] [id number] [facility] [id number] 2021-08-19 00:00:00 Problems Condition Condition Condition Status Onset Resolution Last Treating Co mments Source Name Details Category Date Date Treatment Clinician Date [id number] Bilateral Problem Comm on carpal Spirit tunnel - [facility] syndrome [facility] [id number] [place] [id number] tunnel Spirit syndrome - [facility] of right [facility] [id number] [place] [address] tunnel Spirit syndrome - [facility] of left [facility] [id number] Migraine Problem Common with aura Spirit and - [facility] without [facility] migrainosu Medica l s, not Center intractabl e [id number] Primary Problem Common insomnia Spirit - CHI [facility] [id number] Morbid Problem Commo n 9104 (severe) Spirit obesity - [facility]I due to [facility] [id number] OSKAR Problem Common (generaliz Spirit ed anxiety - CHI disorder) [facility] [id number] Essential Problem Comm on (primary) Spirit hypertensi - [facility]I on [facility] [id number] Body mass Problem Com mon index Spirit [BMI] - CHI 50.0-59.9, [facility] [id number] OTF Problem Common (obstructi Spirit ve sleep - CHI apnea) [facility] No known No known Disease Unive rs active active ity of problems problems [facility] Allergies, Adverse Reactions, Alerts Allergy Allergy Status Severity Reaction(s) Onset Inactive Treating Comm ents Source Name Type Date Date Clinician NO KNOWN Drug Active Univers ALLERGIE Class ity of S [facility] Social History Social Habit Start Date Stop Date Quantity Comments Source History of Tobacco Common Spirit - CHI Use [facility] Sex Assigned At Common Sp home - CHI [facility] Exposure to 2022-04-26 2022-05-06 Not sure [facility] SARS-CoV-2 (event) 00:00:00 16:56:00 [facility] Branch Smoking Status Start Date Stop Date Source Tobacco smoking [facility] xa consumption unknown Medical Bran ch Former Smoker 2022-05-21 00:00:00 2022-05-21 Common Spiri t - [facility] St 00:00:00 [facility] nter Medications Ordered Filled Start Stop Current Ordering Indication Dosage Frequency Signature Comments Components Source Medication Medication Date Date Medication? Clinician (SIG) Name Name ketorolac 2022- No 15mg 15 mg, Unive rs (TORADOL) 05-07 Slow IV ity of injection 04:15: 03:34 Push, [place] 15 mg 00 :00 ONCE, 1 Medical dose, On Branch 05/06/22 at 2215, MALISSA cefdinir 2022- No 300mg 300 mg, Univ ers (OMNICEF) 05-07 Oral, ity of capsule 300 03:15: 03[place] dose, On Medical Mon Branch 05/06/22 at 2115, MALISSA
Re ason for Anti-Infec tive: Documented Infection< br>Documen anil Infection Site: Urine
D uration of Therapy: 10 days mupirocin 2 Yes [id number] Apply to Univers % ointment 16 area(s) 3 ity of 00:00: (three) [place] 00 times Medical daily. Branch ibuprofen Yes [id number] 600mg Take 1 U nivers 600 mg 16 tablet by ity of tablet 00:00: mouth [place] 00 every 6 Medical (six) Branch hours as needed for Pain (scale 4-6). cefdinir 2022- Yes [id number] 300mg Take 1 U nivers 300 mg 05-06 capsule by ity of capsule 00:00: 05:59 mouth [place] 00 :00 every 12 Medical (twelve) Branch hours for 10 days. Acetaminoph Acetaminoph 2021-04 No 1{table QID Acetaminop en-Codeine en-Codeine 1- t_as_ne hen-Codein #3 300-30 #3 300-30 00:00: eded} e #3 MG MG 00 300-30 MG Acetaminoph Acetaminoph 2021-04 No 1{table QID Acetaminop en-Codeine en-Codeine 1-10 t_as_ne hen-Codein #3 300-30 #3 300-30 00:00: eded} e #3 MG MG 00 300-30 MG Acetaminoph Acetaminoph 2021-04 No 1{table Acetaminop en-Codeine en-Codeine 0-31 t_as_ne hen-Codein #3 300-30 #3 300-30 00:00: eded} e #3 MG MG 00 300-30 MG Acetaminoph Acetaminoph 2022-1 No 1{table Acetaminop en-Codeine en-Codeine 0-31 t_as_ne hen-Codein #3 300-30 #3 300-30 00:00: eded} e #3 MG MG 00 300-30 MG Acetaminoph Acetaminoph 2022-1 No 1{table Acetaminop en-Codeine en-Codeine 0-31 t_as_ne hen-Codein #3 300-30 #3 300-30 00:00: eded} e #3 MG MG 00 300-30 MG Acetaminoph Acetaminoph 2022-1 No 1{table Acetaminop en-Codeine en-Codeine 0-31 t_as_ne hen-Codein #3 300-30 #3 300-30 00:00: eded} e #3 MG MG 00 300-30 MG Acetaminoph Acetaminoph 2022-0 No 1{table QID Acetaminop en-Codeine en-Codeine 9-29 t_as_ne hen-Codein #3 300-30 #3 300-30 00:00: eded} e #3 MG MG 00 300-30 MG Acetaminoph Acetaminoph 2022-0 No 1{table QID Acetaminop en-Codeine en-Codeine 9-29 t_as_ne hen-Codein #3 300-30 #3 300-30 00:00: eded} e #3 MG MG 00 300-30 MG Acetaminoph Acetaminoph 2022-0 No 1{table QID Acetaminop en-Codeine en-Codeine 9-29 t_as_ne hen-Codein #3 300-30 #3 300-30 00:00: eded} e #3 MG MG 00 300-30 MG Acetaminoph Acetaminoph 2022-0 No 1{table QID Acetaminop en-Codeine en-Codeine 9-29 t_as_ne hen-Codein #3 300-30 #3 300-30 00:00: eded} e #3 MG MG 00 300-30 MG Acetaminoph Acetaminoph 2022-0 No 1{table QID Acetaminop en-Codeine en-Codeine 9-29 t_as_ne hen-Codein #3 300-30 #3 300-30 00:00: eded} e #3 MG MG 00 300-30 MG Acetaminoph Acetaminoph 2022-0 No 1{table QID Acetaminop en-Codeine en-Codeine 9-29 t_as_ne hen-Codein #3 300-30 #3 300-30 00:00: eded} e #3 MG MG 00 300-30 MG Acetaminoph Acetaminoph 2022-0 No 1{table QID Acetaminop en-Codeine en-Codeine 9-29 t_as_ne hen-Codein #3 300-30 #3 300-30 00:00: eded} e #3 MG MG 00 300-30 MG Acetaminoph Acetaminoph 2022-0 No 1{table QID Acetaminop en-Codeine en-Codeine 9-29 t_as_ne hen-Codein #3 300-30 #3 300-30 00:00: eded} e #3 MG MG 00 300-30 MG Acetaminoph Acetaminoph 2022-0 No 1{table QID Acetaminop en-Codeine en-Codeine 9-29 t_as_ne hen-Codein #3 300-30 #3 300-30 00:00: eded} e #3 MG MG 00 300-30 MG Acetaminoph Acetaminoph 2022-0 No 1{table QID Acetaminop en-Codeine en-Codeine 9-29 t_as_ne hen-Codein #3 300-30 #3 300-30 00:00: eded} e #3 MG MG 00 300-30 MG Acetaminoph Acetaminoph 2022-0 No 1{table QID Acetaminop en-Codeine en-Codeine 9-29 t_as_ne hen-Codein #3 300-30 #3 300-30 00:00: eded} e #3 MG MG 00 300-30 MG Acetaminoph Acetaminoph 2022-0 No 1{table QID Acetaminop en-Codeine en-Codeine 9-29 t_as_ne hen-Codein #3 300-30 #3 300-30 00:00: eded} e #3 MG MG 00 300-30 MG Acetaminoph Acetaminoph 2022-0 No 1{table QID Acetaminop en-Codeine en-Codeine 9-29 t_as_ne hen-Codein #3 300-30 #3 300-30 00:00: eded} e #3 MG MG 00 300-30 MG Acetaminoph Acetaminoph 2022-0 No 1{table QID Acetaminop en-Codeine en-Codeine 9-29 t_as_ne hen-Codein #3 300-30 #3 300-30 00:00: eded} e #3 MG MG 00 300-30 MG Acetaminoph Acetaminoph 2022-0 No 1{table Acetaminop en-Codeine en-Codeine 9-20 t_as_ne hen-Codein #3 300-30 #3 300-30 00:00: eded} e #3 MG MG 00 300-30 MG Acetaminoph Acetaminoph 2022-0 No 1{table Acetaminop en-Codeine en-Codeine 9-20 t_as_ne hen-Codein #3 300-30 #3 300-30 00:00: eded} e #3 MG MG 00 300-30 MG Acetaminoph Acetaminoph 2022-0 No 1{table Acetaminop en-Codeine en-Codeine 9-20 t_as_ne hen-Codein #3 300-30 #3 300-30 00:00: eded} e #3 MG MG 00 300-30 MG Acetaminoph Acetaminoph 2022-0 No 1{table Acetaminop en-Codeine en-Codeine 9-20 t_as_ne hen-Codein #3 300-30 #3 300-30 00:00: eded} e #3 MG MG 00 300-30 MG Acetaminoph Acetaminoph 2022-0 No 1{table Acetaminop en-Codeine en-Codeine 9-20 t_as_ne hen-Codein #3 300-30 #3 300-30 00:00: eded} e #3 MG MG 00 300-30 MG Acetaminoph Acetaminoph 2022-0 No 1{table Acetaminop en-Codeine en-Codeine 9-20 t_as_ne hen-Codein #3 300-30 #3 300-30 00:00: eded} e #3 MG MG 00 300-30 MG Acetaminoph Acetaminoph 2022-0 No 1{table Acetaminop en-Codeine en-Codeine 9-20 t_as_ne hen-Codein #3 300-30 #3 300-30 00:00: eded} e #3 MG MG 00 300-30 MG Acetaminoph Acetaminoph 2022-0 No 1{table Acetaminop en-Codeine en-Codeine 9-20 t_as_ne hen-Codein #3 300-30 #3 300-30 00:00: eded} e #3 MG MG 00 300-30 MG Acetaminoph Acetaminoph 2022-0 No 1{table Acetaminop en-Codeine en-Codeine 9-20 t_as_ne hen-Codein #3 300-30 #3 300-30 00:00: eded} e #3 MG MG 00 300-30 MG Acetaminoph Acetaminoph 2022-0 No 1{table Acetaminop en-Codeine en-Codeine 9-20 t_as_ne hen-Codein #3 300-30 #3 300-30 00:00: eded} e #3 MG MG 00 300-30 MG Acetaminoph Acetaminoph 2022-0 No 1{table Acetaminop en-Codeine en-Codeine 9-20 t_as_ne hen-Codein #3 300-30 #3 300-30 00:00: eded} e #3 MG MG 00 300-30 MG Acetaminoph Acetaminoph 2022-0 No 1{table Acetaminop en-Codeine en-Codeine 9-20 t_as_ne hen-Codein #3 300-30 #3 300-30 00:00: eded} e #3 MG MG 00 300-30 MG Acetaminoph Acetaminoph 2022-0 No 1{table Acetaminop en-Codeine en-Codeine 9-20 t_as_ne hen-Codein #3 300-30 #3 300-30 00:00: eded} e #3 MG MG 00 300-30 MG Acetaminoph Acetaminoph 2022-0 No 1{table Acetaminop en-Codeine en-Codeine 9-20 t_as_ne hen-Codein #3 300-30 #3 300-30 00:00: eded} e #3 MG MG 00 300-30 MG Acetaminoph Acetaminoph 2022-0 No 1{table Acetaminop en-Codeine en-Codeine 9-20 t_as_ne hen-Codein #3 300-30 #3 300-30 00:00: eded} e #3 MG MG 00 300-30 MG Acetaminoph Acetaminoph 2022-0 No 1{table Acetaminop en-Codeine en-Codeine 9-20 t_as_ne hen-Codein #3 300-30 #3 300-30 00:00: eded} e #3 MG MG 00 300-30 MG Acetaminoph Acetaminoph 2022-0 No 1{table Acetaminop en-Codeine en-Codeine 9-20 t_as_ne hen-Codein #3 300-30 #3 300-30 00:00: eded} e #3 MG MG 00 300-30 MG Acetaminoph Acetaminoph 2022-0 No 1{table Acetaminop en-Codeine en-Codeine 9-20 t_as_ne hen-Codein #3 300-30 #3 300-30 00:00: eded} e #3 MG MG 00 300-30 MG Acetaminoph Acetaminoph 2022-0 No 1{table Acetaminop en-Codeine en-Codeine 9-20 t_as_ne hen-Codein #3 300-30 #3 300-30 00:00: eded} e #3 MG MG 00 300-30 MG Dextrometho Dextrometho 2022-0 No 10{ml_a QID Dextrometh rphan-guaiF rphan-guaiF 8-04 s_neede orphan-gua ENesin ENesin 00:00: d} iFENesin 15-200 15-200 00 15-200 MG/5ML MG/5ML MG/5ML Dextrometho Dextrometho 2022-0 No 10{ml_a QID Dextrometh rphan-guaiF rphan-guaiF 8-04 s_neede orphan-gua ENesin ENesin 00:00: d} iFENesin 15-200 15-200 00 15-200 MG/5ML MG/5ML MG/5ML Dextrometho Dextrometho 2022-0 No 10{ml_a QID Dextrometh rphan-guaiF rphan-guaiF 8-04 s_neede orphan-gua ENesin ENesin 00:00: d} iFENesin 15-200 15-200 00 15-200 MG/5ML MG/5ML MG/5ML Dextrometho Dextrometho 2-0 No 10{ml_a QID Dextrometh rphan-guaiF rphan-guaiF 8-04 s_neede orphan-gua ENesin ENesin 00:00: d} iFENesin 15-200 15-200 00 15-200 MG/5ML MG/5ML MG/5ML Dextrometho Dextrometho 2-0 No 10{ml_a QID Dextrometh rphan-guaiF han-guaiF 8-04 s_neede orphan-gua ENesin ENesin 00:00: d} iFENesin 15-200 15-200 00 15-200 MG/5ML MG/5ML MG/5ML Dextrometho Dextrometho 2-0 No 10{ml_a QID Dextrometh rphan-guaiF han-guaiF 8-04 s_neede orphan-gua ENesin ENesin 00:00: d} iFENesin 15-200 15-200 00 15-200 MG/5ML MG/5ML MG/5ML Dextrometho Dextrometho 2-0 No 10{ml_a QID Dextrometh rphan-guaiF rphan-guaiF 8-04 s_neede orphan-gua ENesin ENesin 00:00: d} iFENesin 15-200 15-200 00 15-200 MG/5ML MG/5ML MG/5ML Dextrometho Dextrometho 2022-0 No 10{ml_a QID Dextrometh rphan-guaiF rphan-guaiF 8-04 s_neede orphan-gua ENesin ENesin 00:00: d} iFENesin 15-200 15-200 00 15-200 MG/5ML MG/5ML MG/5ML Dextrometho Dextrometho 2-0 No 10{ml_a QID Dextrometh han-guaiF [facility] 8-04 s_neede orphan-gua ENesin ENesin 00:00: d} iFENesin 15-200 15-200 00 15-200 MG/5ML MG/5ML MG/5ML Dextrometho Dextrometho 2-0 No 10{ml_a QID Dextrometh han-guaiF [facility] 8-04 s_neede orphan-gua ENesin ENesin 00:00: d} iFENesin 15-200 15-200 00 15-200 MG/5ML MG/5ML MG/5ML Dextrometho Dextrometho 2-0 No 10{ml_a QID Dextrometh [facility]-guaiF [facility] 8-04 s_neede orphan-gua ENesin ENesin 00:00: d} iFENesin 15-200 15-200 00 15-200 MG/5ML MG/5ML MG/5ML Dextrometho Dextrometho 2-0 No 10{ml_a QID Dextrometh [facility]-guaiF [facility] 8-04 s_neede orphan-gua ENesin ENesin 00:00: d} iFENesin 15-200 15-200 00 15-200 MG/5ML MG/5ML MG/5ML Dextrometho Dextrometho 2021-0 No 10{ml_a QID Dextrometh [facility] s_neede orphan-gua ENesin ENesin 00:00: d} iFENesin 15-200 15-200 00 15-200 MG/5ML MG/5ML MG/5ML Dextrometho Dextrometho 2-0 No 10{ml_a QID Dextrometh han-guaiF [facility]-aiF 8-04 s_neede orphan-gua ENesin ENesin 00:00: d} iFENesin 15-200 15-200 00 15-200 MG/5ML MG/5ML MG/5ML Dextrometho Dextrometho 2022-0 No 10{ml_a QID Dextrometh rphan-guaiF [facility]-guaiF 8- s_neede orphan-gua ENesin ENesin 00:00: d} iFENesin 15-200 15-200 00 15-200 MG/5ML MG/5ML MG/5ML Dextrometho Dextrometho 2022-0 No 10{ml_a QID Dextrometh rphan-guaiF [facility]-guaiF 8- s_neede orphan-gua ENesin ENesin 00:00: d} iFENesin 15-200 15-200 00 15-200 MG/5ML MG/5ML MG/5ML Dextrometho Dextrometho 2-0 No 10{ml_a QID Dextrometh han-guaiF [facility]-guaiF 8- s_neede orphan-gua ENesin ENesin 00:00: d} iFENesin 15-200 15-200 00 15-200 MG/5ML MG/5ML MG/5ML Dextrometho Dextrometho 2-0 No 10{ml_a QID Dextrometh han-guaiF [facility]-guaiF 8- s_neede orphan-gua ENesin ENesin 00:00: d} iFENesin 15-200 15-200 00 15-200 MG/5ML MG/5ML MG/5ML Dextrometho Dextrometho 2-0 No 10{ml_a QID Dextrometh han-guaiF [facility]-guaiF 8- s_neede orphan-gua ENesin ENesin 00:00: d} iFENesin 15-200 15-200 00 15-200 MG/5ML MG/5ML MG/5ML Dextrometho Dextrometho 2-0 No 10{ml_a QID Dextrometh rphan-guaiF [facility]-guaiF 8- s_neede orphan-gua ENesin ENesin 00:00: d} iFENesin 15-200 15-200 00 15-200 MG/5ML MG/5ML MG/5ML Dextrometho Dextrometho 2022-0 No 10{ml_a QID Dextrometh rphan-guaiF rphan-guaiF 8-04 [...] 15-200 15-200 00 15-200 MG/5ML MG/5ML MG/5ML Tessalon Tessalon 2021-0 No 1{capsu TID Tessalon [...] MG 7-28 t} 20 MG 00:00: 00 predniSONE predniSONE 2021-0 No 2{table QD predniSONE 20 MG 20 MG 7-28 t} 20 MG 00:00: 00 Tessalon Tessalon 2022-0 No 1{capsu TID Tessalon Perles 100 Perles 100 7-28 le_as_n Perles 100 MG MG 00:00: eeded} MG 00 predniSONE predniSONE No 2{table QD predniSONE 20 MG 20 MG 7-28 t} 20 MG 00:00: 00 Tessalon Tessalon No 1{capsu TID Tessalon Perles 100 Perles 100 7-28 le_as_n Perles 100 MG MG 00:00: eeded} MG 00 predniSONE predniSONE No 2{table QD predniSONE 20 MG 20 MG 7-28 t} 20 MG 00:00: 00 Tessalon Tessalon No 1{capsu TID Tessalon Perles 100 Perles 100 7-28 le_as_n Perles 100 MG MG 00:00: eeded} MG 00 predniSONE predniSONE No 2{table QD predniSONE 20 MG 20 MG 728 t} 20 MG 00:00: 00 Tessalon Tessalon No 1{capsu TID Tessalon Perles 100 Perles 100 7-28 le_as_n Perles 100 MG MG 00:00: eeded} MG 00 Tessalon Tessalon No 1{capsu TID Tessalon Perles 100 Perles 100 7-28 le_as_n Perles 100 MG MG 00:00: eeded} MG 00 predniSONE predniSONE No 2{table QD predniSONE 20 MG 20 MG 728 t} 20 MG 00:00: 00 Tessalon Tessalon No 1{capsu TID Tessalon Perles 100 Perles 100 7-28 le_as_n Per[place] 100 MG MG 00:00: eeded} MG 00 predniSONE predniSONE No 2{table QD predniSONE 20 MG 20 MG 7-28 t} 20 MG 00:00: 00 Tessalon Tessalon No 1{capsu TID Tessalon Perles 100 Perles 100 7-28 le_as_n Perles 100 MG MG 00:00: eeded} MG 00 predniSONE predniSONE No 2{table QD predniSONE 20 MG 20 MG 7-28 t} 20 MG 00:00: 00 predniSONE predniSONE 2022-0 No 2{table QD predniSONE 20 MG 20 MG 7-28 t} 20 MG 00:00: 00 Tessalon Tessalon 0 No 1{capsu TID Tessalon Perles 100 Perles 100 7-28 le_as_n Perles 100 MG MG 00:00: eeded} MG 00 predniSONE predniSONE No 2{table QD predniSONE 20 MG 20 MG 7-28 t} 20 MG 00:00: 00 Tessalon Tessalon No 1{capsu TID Tessalon Perles 100 Perles 100 7-28 le_as_n Perles 100 MG MG 00:00: eeded} MG 00 predniSONE predniSONE No 2{table QD predniSONE 20 MG 20 MG 7-28 t} 20 MG 00:00: 00 Tessalon Tessalon No 1{capsu TID Tessalon Perles 100 Perles 100 7-28 le_as_n Perles 100 MG MG 00:00: eeded} MG 00 Tessalon Tessalon No 1{capsu TID Tessalon Perles 100 Perles 100 7-28 le_as_n Perles 100 MG MG 00:00: eeded} MG 00 predniSONE predniSONE No 2{table QD predniSONE 20 MG 20 MG 7-28 t} 20 MG 00:00: 00 Tessalon Tessalon No 1{capsu TID Tessalon Perles 100 Perles 100 7-28 le_as_n Perles 100 MG MG 00:00: eeded} MG 00 predniSONE predniSONE No 2{table QD predniSONE 20 MG 20 MG 7-28 t} 20 MG 00:00: 00 predniSONE predniSONE 2021-0 No 2{table QD predniSONE 20 MG 20 MG 7-28 t} 20 MG 00:00: 00 Tessalon Tessalon No 1{capsu TID Tessalon Perles 100 Perles 100 7-28 le_as_n [place]les 100 MG MG 00:00: eeded} MG 00 predniSONE predniSONE 2021-0 No 2{table QD predniSONE 20 MG 20 MG 7-28 t} 20 MG 00:00: 00 Tessalon Tessalon 2021- No 1{capsu TID Tessalon Perles 100 Perles 100 7-28 le_as_n Perles 100 MG MG 00:00: eeded} MG 00 predniSONE predniSONE 2021- No 2{table QD predniSONE 20 MG 20 MG 7-28 t} 20 MG 00:00: 00 Tessalon Tessalon No 1{capsu TID Tessalon Perles 100 Perles 100 7-28 le_as_n Perles 100 MG MG 00:00: eeded} MG 00 predniSONE predniSONE No 2{table QD predniSONE 20 MG 20 MG 7-28 t} 20 MG 00:00: 00 predniSONE predniSONE No 2{table QD predniSONE 20 MG 20 MG 7-28 t} 20 MG 00:00: 00 Tessalon Tessalon No 1{capsu TID Tessalon Perles 100 Perles 100 7-28 le_as_n Perles 100 MG MG 00:00: eeded} MG 00 Tessalon Tessalon No 1{capsu TID Tessalon Perles 100 Perles 100 7-28 le_as_n Perles 100 MG MG 00:00: eeded} MG 00 predniSONE predniSONE No 2{table QD predniSONE 20 MG 20 MG 7 t} 20 MG 00:00: 00 Tessalon Tessalon No 1{capsu TID Tessalon Perles 100 Perles 100 7-28 le_as_n Perles 100 MG MG 00:00: eeded} MG 00 Tessalon Tessalon 0 No 1{capsu TID Tessalon Perles 100 Perles 100 7-28 le_as_n Perles 100 MG MG 00:00: eeded} MG 00 predniSONE predniSONE No 2{table QD predniSONE 20 MG 20 MG 7-28 t} 20 MG 00:00: 00 predniSONE predniSONE 2021- No 2{table QD predniSONE 20 MG 20 MG 7-28 t} 20 MG 00:00: 00 Tessalon Tessalon 2021- No 1{capsu TID Tessalon Perles 100 Perles 100 7-28 le_as_n Perles 100 MG MG 00:00: eeded} MG 00 Tessalon Tessalon No 1{capsu TID Tessalon Perles 100 Perles 100 7-28 le_as_n Perles 100 MG MG 00:00: eeded} MG 00 predniSONE predniSONE No 2{table QD predniSONE 20 MG 20 MG 7-28 t} 20 MG 00:00: 00 predniSONE predniSONE No 2{table QD predniSONE 20 MG 20 MG 7-28 t} 20 MG 00:00: 00 Tessalon Tessalon No 1{capsu TID Tessalon Perles 100 Perles 100 7-28 le_as_n Perles 100 MG MG 00:00: eeded} MG 00 predniSONE predniSONE No 2{table QD predniSONE 20 MG 20 [...] Branch mg per 10/15/21 at tablet 1 2099, tablet MALISSA
Re ason for Anti-Infec tive: [...] 10/15/21 at 2100, Routine sulfamethox 2021- No [id number] 1{tbl} Take 1 Univers azole-trime 10-15 07-05 tablet by it y of thoprim 00:00: 04:59 mouth [place] 800-160 mg 00 :00 every 12 Medic al per tablet (twelve) Branc h hours for 7 days. acetaminoph 2021- No [id number] 1{tbl} Take 1 U nivers en-codeine 6-27 07-05 tablet by ity of 300-30 mg 00:00: 04:59 mouth [place] tablet 00 :00 every 6 Medical (six) Branch hours as needed for Pain (scale 7-10) for up to 7 days. Indication s: acute pain predniSONE Yes [id number] 20mg Take 1 U nivers 20 mg 5-21 tablet by ity of tablet 00:00: mouth [place] 00 daily. Medical Branch predniSONE Yes [id number] 20mg Take 1 U nivers 20 mg 5-21 tablet by ity of tablet 00:00: mouth [place] 00 daily. Medical Branch predniSONE Yes [id number] 20mg Take 1 U nivers 20 mg 5-21 tablet by ity of tablet 00:00: mouth [place] 00 daily. Medical Branch predniSONE Yes [id number] 20mg Take 1 U nivers 20 mg 5-21 tablet by ity of tablet 00:00: mouth [place] 00 daily. Medical Branch predniSONE Yes [id number] 20mg Take 1 U nivers 20 mg [...] to 7 days. Indication s: acute pain metFORMIN metFORMIN No 1{table BID metFORMIN HCl ER 500 HCl ER 500 5-19 t_with_ HCl ER 500 MG MG 00:00: evening MG 00 _meal} FLUoxetine FLUoxetine No 1{capsu QD FLUoxetine HCl 40 MG HCl 40 MG 5-19 le} HCl 40 MG 00:00: 00 metFORMIN metFORMIN No 1{table BID metFORMIN HCl ER 500 HCl ER 500 5-19 t_with_ HCl ER 500 MG MG 00:00: evening MG 00 _meal} FLUoxetine FLUoxetine No 1{capsu QD FLUoxetine HCl 40 MG HCl 40 MG 5-19 le} HCl 40 MG 00:00: 00 FLUoxetine FLUoxetine 2022-0 No 1{capsu QD FLUoxetine HCl 40 MG HCl 40 MG 5-19 le} HCl 40 MG 00:00: 00 metFORMIN metFORMIN 2021-0 No 1{table BID metFORMIN HCl ER 500 HCl ER 500 5-19 t_with_ HCl ER 500 MG MG 00:00: evening MG 00 _meal} Butalbital- Butalbital- 2021-0 No Butalbital APAP-Caffei APAP-Caffei 5-10 -APAP-Caff ne ne 00:00: eine 50-325-40 50-325-40 00 50-325-40 MG MG MG Butalbital- Butalbital- 2021-0 No Butalbital APAP-Caffei APAP-Caffei 5-10 -APAP-Caff ne ne 00:00: eine 50-325-40 50-325-40 00 50-325-40 MG MG MG Butalbital- Butalbital- 2-0 No Butalbital APAP-Caffei APAP-Caffei 5-10 -APAP-Caff ne ne 00:00: eine 50-325-40 50-325-40 00 50-325-40 MG MG MG Butalbital- Butalbital- 2022-0 No Butalbital APAP-Caffei APAP-Caffei 5-10 -APAP-Caff ne ne 00:00: eine 50-325-40 50-325-40 00 50-325-40 MG MG MG Butalbital- Butalbital- 2022-0 No Butalbital APAP-Caffei APAP-Caffei 5-10 -APAP-Caff ne ne 00:00: eine 50-325-40 50-325-40 00 50-325-40 MG MG MG Butalbital- Butalbital- 2022-0 No Butalbital APAP-Caffei APAP-Caffei 5-10 -APAP-Caff ne ne 00:00: eine 50-325-40 50-325-40 00 50-325-40 MG MG MG Butalbital- Butalbital- 2022-0 No Butalbital APAP-Caffei APAP-Caffei 5-10 -APAP-Caff ne ne 00:00: eine 50-325-40 50-325-40 00 50-325-40 MG MG MG Butalbital- Butalbital- 2022-0 No Butalbital APAP-Caffei APAP-Caffei 5-10 -APAP-Caff ne ne 00:00: eine 50-325-40 50-325-40 00 50-325-40 MG MG MG Butalbital- Butalbital- 2022-0 No Butalbital APAP-Caffei APAP-Caffei 5-10 -APAP-Caff ne ne 00:00: eine 50-325-40 50-325-40 00 50-325-40 MG MG MG Butalbital- Butalbital- 2022-0 No Butalbital APAP-Caffei APAP-Caffei 5-10 -APAP-Caff ne ne 00:00: eine 50-325-40 50-325-40 00 50-325-40 MG MG MG Butalbital- Butalbital- 2022-0 No Butalbital APAP-Caffei APAP-Caffei 5-10 -APAP-Caff ne ne 00:00: eine 50-325-40 50-325-40 00 50-325-40 MG MG MG Butalbital- Butalbital- 2022-0 No Butalbital APAP-Caffei APAP-Caffei 5-10 -APAP-Caff ne ne 00:00: eine 50-325-40 50-325-40 00 50-325-40 MG MG MG Butalbital- Butalbital- 2022-0 No Butalbital APAP-Caffei APAP-Caffei 5-10 -APAP-Caff ne ne 00:00: eine 50-325-40 50-325-40 00 50-325-40 MG MG MG Butalbital- Butalbital- 2022-0 No Butalbital APAP-Caffei APAP-Caffei 5-10 -APAP-Caff ne ne 00:00: eine 50-325-40 50-325-40 00 50-325-40 MG MG MG Butalbital- Butalbital- 2022-0 No Butalbital APAP-Caffei APAP-Caffei 5-10 -APAP-Caff ne ne 00:00: eine 50-325-40 50-325-40 00 50-325-40 MG MG MG Butalbital- Butalbital- 2022-0 No Butalbital APAP-Caffei APAP-Caffei 5-10 -APAP-Caff ne ne 00:00: eine 50-325-40 50-325-40 00 50-325-40 MG MG MG Butalbital- Butalbital- 2022-0 No Butalbital APAP-Caffei APAP-Caffei 5-10 -APAP-Caff ne ne 00:00: eine 50-325-40 50-325-40 00 50-325-40 MG MG MG Butalbital- Butalbital- 2022-0 No Butalbital APAP-Caffei APAP-Caffei 5-10 -APAP-Caff ne ne 00:00: eine 50-325-40 50-325-40 00 50-325-40 MG MG MG Butalbital- Butalbital- 2022-0 No Butalbital APAP-Caffei APAP-Caffei 5-10 -APAP-Caff ne ne 00:00: eine 50-325-40 50-325-40 00 50-325-40 MG MG MG Butalbital- Butalbital- 2022-0 No Butalbital APAP-Caffei APAP-Caffei 5-10 -APAP-Caff ne ne 00:00: eine 50-325-40 50-325-40 00 50-325-40 MG MG MG Butalbital- Butalbital- 2022-0 No Butalbital APAP-Caffei APAP-Caffei 5-10 -APAP-Caff ne ne 00:00: eine 50-325-40 50-325-40 00 50-325-40 MG MG MG Butalbital- Butalbital- 2022-0 No Butalbital APAP-Caffei APAP-Caffei 5-10 -APAP-Caff ne ne 00:00: eine 50-325-40 50-325-40 00 50-325-40 MG MG MG Butalbital- Butalbital- 2022-0 No Butalbital APAP-Caffei APAP-Caffei 5-10 -APAP-Caff ne ne 00:00: eine 50-325-40 50-325-40 00 50-325-40 MG MG MG Butalbital- Butalbital- 2022-0 No Butalbital APAP-Caffei APAP-Caffei 5-10 -APAP-Caff ne ne 00:00: eine 50-325-40 50-325-40 00 50-325-40 MG MG MG Butalbital- Butalbital- 2-0 No Butalbital APAP-Caffei APAP-Caffei 5-10 -APAP-Caff ne ne 00:00: eine 50-325-40 50-325-40 00 50-325-40 MG MG MG Butalbital- Butalbital- 2021-0 No Butalbital APAP-Caffei APAP-Caffei 5-10 -APAP-Caff ne ne 00:00: eine 50-325-40 50-325-40 00 50-325-40 MG MG MG Butalbital- Butalbital- 2021-0 No Butalbital APAP-Caffei APAP-Caffei 5-10 -APAP-Caff ne ne 00:00: eine 50-325-40 50-325-40 00 50-325-40 MG MG MG Butalbital- Butalbital- 2021-0 No Butalbital APAP-Caffei APAP-Caffei 5-10 -APAP-Caff ne ne 00:00: eine 50-325-40 50-325-40 00 50-325-40 MG MG MG Butalbital- Butalbital- 2021-0 No Butalbital APAP-Caffei APAP-Caffei 5-10 -APAP-Caff ne ne 00:00: eine 50-325-40 50-325-40 00 50-325-40 MG MG MG Butalbital- Butalbital- 2021-0 No Butalbital APAP-Caffei APAP-Caffei 5-10 -APAP-Caff ne ne 00:00: eine 50-325-40 50-325-40 00 50-325-40 MG MG MG Butalbital- Butalbital- 2-0 No Butalbital APAP-Caffei APAP-Caffei 5-10 -APAP-Caff ne ne 00:00: eine 50-325-40 50-325-40 00 50-325-40 MG MG MG amLODIPine amLODIPine 2021-0 No 1{table QD amLODIPine Besylate 5 Besylate 5 3-24 t} Besylate 5 MG MG 00:00: MG 00 Butalbital- Butalbital- 2021- No 1{table 6xD Butalbital APAP-Caffei APAP-Caffei 24 04- t_as_ne -APAP-Caff ne ne 00:00: 00:00 eded} eine 50-325-40 50-325-40 00 :00 50-325-40 MG MG MG Prazosin Prazosin 0 No 1{capsu QD Prazosin HCl 2 MG HCl 2 MG 3-10 le_at_b HCl 2 MG 00:00: edtime} 00 busPIRone busPIRone No 1{table TID busPIRone HCl 10 MG HCl 10 MG 3-10 t} HCl 10 MG 00:00: 00 Carvedilol Carvedilol No 1{table BID Carvedilol 12.5 MG 12.5 MG 3-10 t_with_ 12.5 MG 00:00: food} 00 amLODIPine amLODIPine No amLODIPine Besylate 5 Besylate 5 Besylate 5 MG MG MG Meloxicam Meloxicam No 1{table QD Meloxicam 7.5 MG 7.5 MG t} 7.5 MG cloNIDine cloNIDine No 1{table BID cloNIDine HCl 0.3 MG HCl 0.3 MG t} HCl 0.3 MG Prazosin Prazosin No 1{capsu QD Prazosin HCl 2 MG HCl 2 MG le_at_b HCl 2 MG edtime} tiZANidine tiZANidine No 1{table TID tiZANidine HCl 4 MG HCl 4 MG t_as_ne HCl 4 MG eded} Carvedilol Carvedilol No Carvedilol 12.5 MG 12.5 MG 12.5 MG metFORMIN metFORMIN No 1{table BID metFORMIN HCl ER 500 HCl ER 500 t_with_ HCl ER 500 MG MG evening MG _meal} Losartan Losartan No 1{table QD Losartan Potassium Potassium t} Potassium 100 MG 100 MG 100 MG Meloxicam Meloxicam No 1{table QD Meloxicam 7.5 MG 7.5 MG t} 7.5 MG FLUoxetine FLUoxetine No FLUoxetine HCl 40 MG HCl 40 MG HCl 40 MG Prazosin Prazosin No Prazosin HCl 2 MG HCl 2 MG HCl 2 MG metFORMIN metFORMIN No metFORMIN HCl ER 500 HCl ER 500 HCl ER 500 MG MG MG busPIRone busPIRone No busPIRone HCl 10 MG HCl 10 MG HCl 10 MG Silver Silver No 1{appli BID Silver sulfADIAZIN sulfADIAZIN cation} sulfADIAZI E 1 % E 1 % NE 1 % busPIRone busPIRone No 1{table TID busPIRone HCl 10 MG HCl 10 MG t} HCl 10 MG cloNIDine cloNIDine No cloNIDine HCl 0.3 MG HCl 0.3 MG HCl 0.3 MG FLUoxetine FLUoxetine No 1{capsu QD FLUoxetine HCl 40 MG HCl 40 MG le} HCl 40 MG amLODIPine amLODIPine No amLODIPine Besylate 5 Besylate 5 Besylate 5 MG MG MG cloNIDine cloNIDine No 1{table BID cloNIDine HCl 0.3 MG HCl 0.3 MG t} HCl 0.3 MG Prazosin Prazosin No 1{capsu QD Prazosin HCl 2 MG HCl 2 MG le_at_b HCl 2 MG edtime} tiZANidine tiZANidine No 1{table TID tiZANidine HCl 4 MG HCl 4 MG t_as_ne HCl 4 MG eded} Carvedilol Carvedilol No Carvedilol 12.5 MG 12.5 MG 12.5 MG metFORMIN metFORMIN No 1{table BID metFORMIN HCl ER 500 HCl ER 500 t_with_ HCl ER 500 MG MG evening MG _meal} Losartan Losartan No 1{table QD Losartan Potassium Potassium t} Potassium 100 MG 100 MG 100 MG Meloxicam Meloxicam No 1{table QD Meloxicam 7.5 MG 7.5 MG t} 7.5 MG FLUoxetine FLUoxetine No FLUoxetine HCl 40 MG HCl 40 MG HCl 40 MG Prazosin Prazosin No Prazosin HCl 2 MG HCl 2 MG HCl 2 MG metFORMIN metFORMIN No metFORMIN HCl ER 500 HCl ER 500 HCl ER 500 MG MG MG busPIRone busPIRone No busPIRone HCl 10 MG HCl 10 MG HCl 10 MG Silver Silver No 1{appli BID Silver sulfADIAZIN sulfADIAZIN cation} sulfADIAZI E 1 % E 1 % NE 1 % busPIRone busPIRone No 1{table TID busPIRone HCl 10 MG HCl 10 MG t} HCl 10 MG cloNIDine cloNIDine No cloNIDine HCl 0.3 MG HCl 0.3 MG HCl 0.3 MG FLUoxetine FLUoxetine No 1{capsu QD FLUoxetine HCl 40 MG HCl 40 MG le} HCl 40 MG amLODIPine amLODIPine No amLODIPine Besylate 5 Besylate 5 Besylate 5 MG MG MG FLUoxetine FLUoxetine No FLUoxetine HCl 40 MG HCl 40 MG HCl 40 MG metFORMIN metFORMIN No metFORMIN HCl ER 500 HCl ER 500 HCl ER 500 MG MG MG cloNIDine cloNIDine No cloNIDine HCl 0.3 MG HCl 0.3 MG HCl 0.3 MG Prazosin Prazosin No 1{capsu QD Prazosin HCl 2 MG HCl 2 MG le_at_b HCl 2 MG edtime} Prazosin Prazosin No Prazosin HCl 2 MG HCl 2 MG HCl 2 MG cloNIDine cloNIDine No 1{table BID cloNIDine HCl 0.3 MG HCl 0.3 MG t} HCl 0.3 MG amLODIPine amLODIPine No amLODIPine Besylate 5 Besylate 5 Besylate 5 MG MG MG Losartan Losartan No 1{table QD Losartan Potassium Potassium t} Potassium 100 MG 100 MG 100 MG tiZANidine tiZANidine No 1{table TID tiZANidine HCl 4 MG HCl 4 MG t_as_ne HCl 4 MG eded} Carvedilol Carvedilol No Carvedilol 12.5 MG 12.5 MG 12.5 MG Silver Silver No 1{appli BID Silver sulfADIAZIN sulfADIAZIN cation} sulfADIAZI E 1 % E 1 % NE 1 % FLUoxetine FLUoxetine No 1{capsu QD FLUoxetine HCl 40 MG HCl 40 MG le} HCl 40 MG metFORMIN metFORMIN No 1{table BID metFORMIN HCl ER 500 HCl ER 500 t_with_ HCl ER 500 MG MG evening MG _meal} Meloxicam Meloxicam No 1{table QD Meloxicam 7.5 MG 7.5 MG t} 7.5 MG busPIRone busPIRone No busPIRone HCl 10 MG HCl 10 MG HCl 10 MG busPIRone busPIRone No 1{table TID busPIRone HCl 10 MG HCl 10 MG t} HCl 10 MG FLUoxetine FLUoxetine No FLUoxetine HCl 40 MG HCl 40 MG HCl 40 MG metFORMIN metFORMIN No metFORMIN HCl ER 500 HCl ER 500 HCl ER 500 MG MG MG cloNIDine cloNIDine No cloNIDine HCl 0.3 MG HCl 0.3 MG HCl 0.3 MG Prazosin Prazosin No 1{capsu QD Prazosin HCl 2 MG HCl 2 MG le_at_b HCl 2 MG edtime} Prazosin Prazosin No Prazosin HCl 2 MG HCl 2 MG HCl 2 MG cloNIDine cloNIDine No 1{table BID cloNIDine HCl 0.3 MG HCl 0.3 MG t} HCl 0.3 MG amLODIPine amLODIPine No amLODIPine Besylate 5 Besylate 5 Besylate 5 MG MG MG Losartan Losartan No 1{table QD Losartan Potassium Potassium t} Potassium 100 MG 100 MG 100 MG tiZANidine tiZANidine No 1{table TID tiZANidine HCl 4 MG HCl 4 MG t_as_ne HCl 4 MG eded} Carvedilol Carvedilol No Carvedilol 12.5 MG 12.5 MG 12.5 MG Silver Silver No 1{appli BID Silver sulfADIAZIN sulfADIAZIN cation} sulfADIAZI E 1 % E 1 % NE 1 % FLUoxetine FLUoxetine No 1{capsu QD FLUoxetine HCl 40 MG HCl 40 MG le} HCl 40 MG metFORMIN metFORMIN No 1{table BID metFORMIN HCl ER 500 HCl ER 500 t_with_ HCl ER 500 MG MG evening MG _meal} Meloxicam Meloxicam No 1{table QD Meloxicam 7.5 MG 7.5 MG t} 7.5 MG busPIRone busPIRone No busPIRone HCl 10 MG HCl 10 MG HCl 10 MG busPIRone busPIRone No 1{table TID busPIRone HCl 10 MG HCl 10 MG t} HCl 10 MG Losartan Losartan No 1{table QD Losartan Potassium Potassium t} Potassium 100 MG 100 MG 100 MG FLUoxetine FLUoxetine No FLUoxetine HCl 20 MG HCl 20 MG HCl 20 MG cloNIDine cloNIDine No 1{table BID cloNIDine HCl 0.3 MG HCl 0.3 MG t} HCl 0.3 MG tiZANidine tiZANidine No 1{table TID tiZANidine HCl 4 MG HCl 4 MG t_as_ne HCl 4 MG eded} amLODIPine amLODIPine No 1{table QD amLODIPine Besylate 5 Besylate 5 t} Besylate 5 MG MG MG tiZANidine tiZANidine No 1{table TID tiZANidine HCl 4 MG HCl 4 MG t_as_ne HCl 4 MG eded} Prazosin Prazosin No Prazosin HCl 2 MG HCl 2 MG HCl 2 MG Prazosin Prazosin No 1{capsu QD Prazosin HCl 2 MG HCl 2 MG le_at_b HCl 2 MG edtime} busPIRone busPIRone No 1{table TID busPIRone HCl 10 MG HCl 10 MG t} HCl 10 MG Losartan Losartan No 1{table QD Losartan Potassium Potassium t} Potassium 100 MG 100 MG 100 MG Carvedilol Carvedilol No Carvedilol 12.5 MG 12.5 MG 12.5 MG cloNIDine cloNIDine No 1{table BID cloNIDine HCl 0.3 MG HCl 0.3 MG t} HCl 0.3 MG busPIRone busPIRone No busPIRone HCl 10 MG HCl 10 MG HCl 10 MG amLODIPine amLODIPine No 1{table QD amLODIPine Besylate 5 Besylate 5 t} Besylate 5 MG MG MG tiZANidine tiZANidine No 1{table TID tiZANidine HCl 4 MG HCl 4 MG t_as_ne HCl 4 MG eded} Prazosin Prazosin No Prazosin HCl 2 MG HCl 2 MG HCl 2 MG Prazosin Prazosin No 1{capsu QD Prazosin HCl 2 MG HCl 2 MG le_at_b HCl 2 MG edtime} busPIRone busPIRone No 1{table TID busPIRone HCl 10 MG HCl 10 MG t} HCl 10 MG Losartan Losartan No 1{table QD Losartan Potassium Potassium t} Potassium 100 MG 100 MG 100 MG Carvedilol Carvedilol No Carvedilol 12.5 MG 12.5 MG 12.5 MG cloNIDine cloNIDine No 1{table BID cloNIDine HCl 0.3 MG HCl 0.3 MG t} HCl 0.3 MG busPIRone busPIRone No busPIRone HCl 10 MG HCl 10 MG HCl 10 MG Losartan Losartan No 1{table QD Losartan Potassium Potassium t} Potassium 100 MG 100 MG 100 MG tiZANidine tiZANidine No 1{table TID tiZANidine HCl 4 MG HCl 4 MG t_as_ne HCl 4 MG eded} Prazosin Prazosin No 1{capsu QD Prazosin HCl 2 MG HCl 2 MG le_at_b HCl 2 MG edtime} Prazosin Prazosin No Prazosin HCl 2 MG HCl 2 MG HCl 2 MG cloNIDine cloNIDine No 1{table BID cloNIDine HCl 0.3 MG HCl 0.3 MG t} HCl 0.3 MG busPIRone busPIRone No 1{table TID busPIRone HCl 10 MG HCl 10 MG t} HCl 10 MG busPIRone busPIRone No busPIRone HCl 10 MG HCl 10 MG HCl 10 MG amLODIPine amLODIPine No 1{table QD amLODIPine Besylate 5 Besylate 5 t} Besylate 5 MG MG MG Carvedilol Carvedilol No Carvedilol 12.5 MG 12.5 MG 12.5 MG tiZANidine tiZANidine No 1{table TID tiZANidine HCl 4 MG HCl 4 MG t_as_ne HCl 4 MG eded} Prazosin Prazosin No Prazosin HCl 2 MG HCl 2 MG HCl 2 MG FLUoxetine FLUoxetine No FLUoxetine HCl 40 MG HCl 40 MG HCl 40 MG Carvedilol Carvedilol No Carvedilol 12.5 MG 12.5 MG 12.5 MG cloNIDine cloNIDine No 1{table BID cloNIDine HCl 0.3 MG HCl 0.3 MG t} HCl 0.3 MG metFORMIN metFORMIN No metFORMIN HCl ER 500 HCl ER 500 HCl ER 500 MG MG MG Losartan Losartan No 1{table QD Losartan Potassium Potassium t} Potassium 100 MG 100 MG 100 MG amLODIPine amLODIPine No amLODIPine Besylate 5 Besylate 5 Besylate 5 MG MG MG Prazosin Prazosin No 1{capsu QD Prazosin HCl 2 MG HCl 2 MG le_at_b HCl 2 MG edtime} busPIRone busPIRone No 1{table TID busPIRone HCl 10 MG HCl 10 MG t} HCl 10 MG Silver Silver No 1{appli BID Silver sulfADIAZIN sulfADIAZIN cation} sulfADIAZI E 1 % E 1 % NE 1 % busPIRone busPIRone No busPIRone HCl 10 MG HCl 10 MG HCl 10 MG tiZANidine tiZANidine No 1{table TID tiZANidine HCl 4 MG HCl 4 MG t_as_ne HCl 4 MG eded} Prazosin Prazosin No Prazosin HCl 2 MG HCl 2 MG HCl 2 MG FLUoxetine FLUoxetine No FLUoxetine HCl 40 MG HCl 40 MG HCl 40 MG Carvedilol Carvedilol No Carvedilol 12.5 MG 12.5 MG 12.5 MG cloNIDine cloNIDine No 1{table BID cloNIDine HCl 0.3 MG HCl 0.3 MG t} HCl 0.3 MG metFORMIN metFORMIN No metFORMIN HCl ER 500 HCl ER 500 HCl ER 500 MG MG MG Losartan Losartan No 1{table QD Losartan Potassium Potassium t} Potassium 100 MG 100 MG 100 MG amLODIPine amLODIPine No amLODIPine Besylate 5 Besylate 5 Besylate 5 MG MG MG Prazosin Prazosin No 1{capsu QD Prazosin HCl 2 MG HCl 2 MG le_at_b HCl 2 MG edtime} busPIRone busPIRone No 1{table TID busPIRone HCl 10 MG HCl 10 MG t} HCl 10 MG Silver Silver No 1{appli BID Silver sulfADIAZIN sulfADIAZIN cation} sulfADIAZI E 1 % E 1 % NE 1 % busPIRone busPIRone No busPIRone HCl 10 MG HCl 10 MG HCl 10 MG Prazosin Prazosin No 1{capsu QD Prazosin HCl 2 MG HCl 2 MG le_at_b HCl 2 MG edtime} Carvedilol Carvedilol No Carvedilol 12.5 MG 12.5 MG 12.5 MG FLUoxetine FLUoxetine No FLUoxetine HCl 40 MG HCl 40 MG HCl 40 MG Meloxicam Meloxicam No 1{table QD Meloxicam 7.5 MG 7.5 MG t} 7.5 MG cloNIDine cloNIDine No 1{table BID cloNIDine HCl 0.3 MG HCl 0.3 MG t} HCl 0.3 MG Losartan Losartan No 1{table QD Losartan Potassium Potassium t} Potassium 100 MG 100 MG 100 MG tiZANidine tiZANidine No 1{table TID tiZANidine HCl 4 MG HCl 4 MG t_as_ne HCl 4 MG eded} Prazosin Prazosin No Prazosin HCl 2 MG HCl 2 MG HCl 2 MG busPIRone busPIRone No 1{table TID busPIRone HCl 10 MG HCl 10 MG t} HCl 10 MG busPIRone busPIRone No busPIRone HCl 10 MG HCl 10 MG HCl 10 MG metFORMIN metFORMIN No metFORMIN HCl ER 500 HCl ER 500 HCl ER 500 MG MG MG Silver Silver No 1{appli BID Silver sulfADIAZIN sulfADIAZIN cation} sulfADIAZI E 1 % E 1 % NE 1 % amLODIPine amLODIPine No amLODIPine Besylate 5 Besylate 5 Besylate 5 MG MG MG Losartan Losartan No 1{table QD Losartan Potassium Potassium t} Potassium 100 MG 100 MG 100 MG Meloxicam Meloxicam No 1{table QD Meloxicam 7.5 MG 7.5 MG t} 7.5 MG busPIRone busPIRone No busPIRone HCl 10 MG HCl 10 MG HCl 10 MG cloNIDine cloNIDine No 1{table BID cloNIDine HCl 0.3 MG HCl 0.3 MG t} HCl 0.3 MG Carvedilol Carvedilol No Carvedilol 12.5 MG 12.5 MG 12.5 MG FLUoxetine FLUoxetine No FLUoxetine HCl 40 MG HCl 40 MG HCl 40 MG amLODIPine amLODIPine No amLODIPine Besylate 5 Besylate 5 Besylate 5 MG MG MG metFORMIN metFORMIN No metFORMIN HCl ER 500 HCl ER 500 HCl ER 500 MG MG MG tiZANidine tiZANidine No 1{table TID tiZANidine HCl 4 MG HCl 4 MG t_as_ne HCl 4 MG eded} Prazosin Prazosin No Prazosin HCl 2 MG HCl 2 MG HCl 2 MG Silver Silver No 1{appli BID Silver sulfADIAZIN sulfADIAZIN cation} sulfADIAZI E 1 % E 1 % NE 1 % busPIRone busPIRone No busPIRone HCl 10 MG HCl 10 MG HCl 10 MG Carvedilol Carvedilol No Carvedilol 12.5 MG 12.5 MG 12.5 MG amLODIPine amLODIPine No amLODIPine Besylate 5 Besylate 5 Besylate 5 MG MG MG cloNIDine cloNIDine No 1{table BID cloNIDine HCl 0.3 MG HCl 0.3 MG t} HCl 0.3 MG metFORMIN metFORMIN No metFORMIN HCl ER 500 HCl ER 500 HCl ER 500 MG MG MG FLUoxetine FLUoxetine No FLUoxetine HCl 40 MG HCl 40 MG HCl 40 MG Meloxicam Meloxicam No 1{table QD Meloxicam 7.5 MG 7.5 MG t} 7.5 MG Prazosin Prazosin No Prazosin HCl 2 MG HCl 2 MG HCl 2 MG tiZANidine tiZANidine No 1{table TID tiZANidine HCl 4 MG HCl 4 MG t_as_ne HCl 4 MG eded} Silver Silver No 1{appli BID Silver sulfADIAZIN sulfADIAZIN cation} sulfADIAZI E 1 % E 1 % NE 1 % Losartan Losartan No 1{table QD Losartan Potassium Potassium t} Potassium 100 MG 100 MG 100 MG Prazosin Prazosin No Prazosin HCl 2 MG HCl 2 MG HCl 2 MG cloNIDine cloNIDine No cloNIDine HCl 0.3 MG HCl 0.3 MG HCl 0.3 MG Silver Silver No 1{appli BID Silver sulfADIAZIN sulfADIAZIN cation} sulfADIAZI E 1 % E 1 % NE 1 % Meloxicam Meloxicam No 1{table QD Meloxicam 7.5 MG 7.5 MG t} 7.5 MG tiZANidine tiZANidine No 1{table TID tiZANidine HCl 4 MG HCl 4 MG t_as_ne HCl 4 MG eded} Losartan Losartan No 1{table QD Losartan Potassium Potassium t} Potassium 100 MG 100 MG 100 MG metFORMIN metFORMIN No metFORMIN HCl ER 500 HCl ER 500 HCl ER 500 MG MG MG Carvedilol Carvedilol No Carvedilol 12.5 MG 12.5 MG 12.5 MG FLUoxetine FLUoxetine No FLUoxetine HCl 40 MG HCl 40 MG HCl 40 MG amLODIPine amLODIPine No amLODIPine Besylate 5 Besylate 5 Besylate 5 MG MG MG busPIRone busPIRone No busPIRone HCl 10 MG HCl 10 MG HCl 10 MG Prazosin Prazosin No Prazosin HCl 2 MG HCl 2 MG HCl 2 MG cloNIDine cloNIDine No cloNIDine HCl 0.3 MG HCl 0.3 MG HCl 0.3 MG Silver Silver No 1{appli BID Silver sulfADIAZIN sulfADIAZIN cation} sulfADIAZI E 1 % E 1 % NE 1 % Meloxicam Meloxicam No 1{table QD Meloxicam 7.5 MG 7.5 MG t} 7.5 MG tiZANidine tiZANidine No 1{table TID tiZANidine HCl 4 MG HCl 4 MG t_as_ne HCl 4 MG eded} Losartan Losartan No 1{table QD Losartan Potassium Potassium t} Potassium 100 MG 100 MG 100 MG metFORMIN metFORMIN No metFORMIN HCl ER 500 HCl ER 500 HCl ER 500 MG MG MG Carvedilol Carvedilol No Carvedilol 12.5 MG 12.5 MG 12.5 MG FLUoxetine FLUoxetine No FLUoxetine HCl 40 MG HCl 40 MG HCl 40 MG amLODIPine amLODIPine No amLODIPine Besylate 5 Besylate 5 Besylate 5 MG MG MG busPIRone busPIRone No busPIRone HCl 10 MG HCl 10 MG HCl 10 MG Prazosin Prazosin No Prazosin HCl 2 MG HCl 2 MG HCl 2 MG cloNIDine cloNIDine No cloNIDine HCl 0.3 MG HCl 0.3 MG HCl 0.3 MG Meloxicam Meloxicam No 1{table QD Meloxicam 7.5 MG 7.5 MG t} 7.5 MG tiZANidine tiZANidine No 1{table TID tiZANidine HCl 4 MG HCl 4 MG t_as_ne HCl 4 MG eded} amLODIPine amLODIPine No amLODIPine Besylate 5 Besylate 5 Besylate 5 MG MG MG Losartan Losartan No 1{table QD Losartan Potassium Potassium t} Potassium 100 MG 100 MG 100 MG Silver Silver No 1{appli BID Silver sulfADIAZIN sulfADIAZIN cation} sulfADIAZI E 1 % E 1 % NE 1 % Carvedilol Carvedilol No Carvedilol 12.5 MG 12.5 MG 12.5 MG FLUoxetine FLUoxetine No FLUoxetine HCl 40 MG HCl 40 MG HCl 40 MG metFORMIN metFORMIN No metFORMIN HCl ER 500 HCl ER 500 HCl ER 500 MG MG MG busPIRone busPIRone No busPIRone HCl 10 MG HCl 10 MG HCl 10 MG Prazosin Prazosin No Prazosin HCl 2 [...] 7.5 MG 7.5 MG t} 7.5 MG cloNIDine cloNIDine No 1{table BID cloNIDine HCl 0.3 MG HCl 0.3 MG t} HCl 0.3 MG Prazosin Prazosin No 1{capsu QD Prazosin HCl 2 MG HCl 2 MG le_at_b HCl 2 MG edtime} tiZANidine tiZANidine No 1{table TID tiZANidine HCl 4 MG HCl 4 MG t_as_ne HCl 4 MG eded} Carvedilol Carvedilol No Carvedilol 12.5 MG 12.5 MG 12.5 MG metFORMIN metFORMIN No 1{table BID metFORMIN HCl ER 500 HCl ER 500 t_with_ HCl ER 500 MG MG evening MG _meal} Losartan Losartan No 1{table QD Losartan Potassium Potassium t} Potassium 100 MG 100 MG 100 MG Prazosin Prazosin No Prazosin HCl 2 MG HCl 2 MG HCl 2 MG Meloxicam Meloxicam No 1{table QD Meloxicam 7.5 MG 7.5 MG t} 7.5 MG FLUoxetine FLUoxetine No FLUoxetine HCl 40 MG HCl 40 MG HCl 40 MG Prazosin Prazosin No Prazosin HCl 2 MG HCl 2 MG HCl 2 MG metFORMIN metFORMIN No metFORMIN HCl ER 500 HCl ER 500 HCl ER 500 MG MG MG busPIRone busPIRone No busPIRone HCl 10 MG HCl 10 MG HCl 10 MG Silver Silver No 1{appli BID Silver sulfADIAZIN sulfADIAZIN cation} sulfADIAZI E 1 % E 1 % NE 1 % busPIRone busPIRone No 1{table TID busPIRone HCl 10 MG HCl 10 MG t} HCl 10 MG cloNIDine cloNIDine No cloNIDine HCl 0.3 MG HCl 0.3 MG HCl 0.3 MG FLUoxetine FLUoxetine No 1{capsu QD FLUoxetine HCl 40 MG HCl 40 MG le} HCl 40 MG amLODIPine amLODIPine No amLODIPine Besylate 5 Besylate 5 Besylate 5 MG MG MG cloNIDine cloNIDine No 1{table BID cloNIDine HCl 0.3 MG HCl 0.3 MG t} HCl 0.3 MG Prazosin Prazosin No 1{capsu QD Prazosin HCl 2 MG HCl 2 MG le_at_b HCl 2 MG edtime} tiZANidine tiZANidine No 1{table TID tiZANidine HCl 4 MG HCl 4 MG t_as_ne HCl 4 MG eded} Carvedilol Carvedilol No Carvedilol 12.5 MG 12.5 MG 12.5 MG metFORMIN metFORMIN No 1{table BID metFORMIN HCl ER 500 HCl ER 500 t_with_ HCl ER 500 MG MG evening MG _meal} FLUoxetine FLUoxetine No FLUoxetine HCl 40 MG HCl 40 MG HCl 40 MG Losartan Losartan No 1{table QD Losartan Potassium Potassium t} Potassium 100 MG 100 MG 100 MG Meloxicam Meloxicam No 1{table QD Meloxicam 7.5 MG 7.5 MG t} 7.5 MG FLUoxetine FLUoxetine No FLUoxetine HCl 40 MG HCl 40 MG HCl 40 MG Prazosin Prazosin No Prazosin HCl 2 MG HCl 2 MG HCl 2 MG metFORMIN metFORMIN No metFORMIN HCl ER 500 HCl ER 500 HCl ER 500 MG MG MG busPIRone busPIRone No busPIRone HCl 10 MG HCl 10 MG HCl 10 MG Silver Silver No 1{appli BID Silver sulfADIAZIN sulfADIAZIN cation} sulfADIAZI E 1 % E 1 % NE 1 % busPIRone busPIRone No 1{table TID busPIRone HCl 10 MG HCl 10 MG t} HCl 10 MG cloNIDine cloNIDine No cloNIDine HCl 0.3 MG HCl 0.3 MG HCl 0.3 MG FLUoxetine FLUoxetine No 1{capsu QD FLUoxetine HCl 40 MG HCl 40 MG le} HCl 40 MG amLODIPine amLODIPine No amLODIPine Besylate 5 Besylate 5 Besylate 5 MG MG MG FLUoxetine FLUoxetine No FLUoxetine HCl 40 MG HCl 40 MG HCl 40 MG metFORMIN metFORMIN No metFORMIN HCl ER 500 HCl ER 500 HCl ER 500 MG MG MG amLODIPine amLODIPine No amLODIPine Besylate 5 Besylate 5 Besylate 5 MG MG MG cloNIDine cloNIDine No cloNIDine HCl 0.3 MG HCl 0.3 MG HCl 0.3 MG Prazosin Prazosin No 1{capsu QD Prazosin HCl 2 MG HCl 2 MG le_at_b HCl 2 MG edtime} Prazosin Prazosin No Prazosin HCl 2 MG HCl 2 MG HCl 2 MG cloNIDine cloNIDine No 1{table BID cloNIDine HCl 0.3 MG HCl 0.3 MG t} HCl 0.3 MG amLODIPine amLODIPine No amLODIPine Besylate 5 Besylate 5 Besylate 5 MG MG MG Losartan Losartan No 1{table QD Losartan Potassium Potassium t} Potassium 100 MG 100 MG 100 MG tiZANidine tiZANidine No 1{table TID tiZANidine HCl 4 MG HCl 4 MG t_as_ne HCl 4 MG eded} Carvedilol Carvedilol No Carvedilol 12.5 MG 12.5 MG 12.5 MG Silver Silver No 1{appli BID Silver sulfADIAZIN sulfADIAZIN cation} sulfADIAZI E 1 % E 1 % NE 1 % tiZANidine tiZANidine No 1{table TID tiZANidine HCl 4 MG HCl 4 MG t_as_ne HCl 4 MG eded} FLUoxetine FLUoxetine No 1{capsu QD FLUoxetine HCl 40 MG HCl 40 MG le} HCl 40 MG metFORMIN metFORMIN No 1{table BID metFORMIN HCl ER 500 HCl ER 500 t_with_ HCl ER 500 MG MG evening MG _meal} Meloxicam Meloxicam No 1{table QD Meloxicam 7.5 MG 7.5 MG t} 7.5 MG busPIRone busPIRone No busPIRone HCl 10 MG HCl 10 MG HCl 10 MG busPIRone busPIRone No 1{table TID busPIRone HCl 10 MG HCl 10 MG t} HCl 10 MG FLUoxetine FLUoxetine No FLUoxetine HCl 40 MG HCl 40 MG HCl 40 MG metFORMIN metFORMIN No metFORMIN HCl ER 500 HCl ER 500 HCl ER 500 MG MG MG metFORMIN metFORMIN No metFORMIN HCl ER 500 HCl ER 500 HCl ER 500 MG MG MG cloNIDine cloNIDine No cloNIDine HCl 0.3 MG HCl 0.3 MG HCl 0.3 MG Prazosin Prazosin No 1{capsu QD Prazosin HCl 2 MG HCl 2 MG le_at_b HCl 2 MG edtime} Prazosin Prazosin No Prazosin HCl 2 MG HCl 2 MG HCl 2 MG cloNIDine cloNIDine No 1{table BID cloNIDine HCl 0.3 MG HCl 0.3 MG t} HCl 0.3 MG amLODIPine amLODIPine No amLODIPine Besylate 5 Besylate 5 Besylate 5 MG MG MG Losartan Losartan No 1{table QD Losartan Potassium Potassium t} Potassium 100 MG 100 MG 100 MG tiZANidine tiZANidine No 1{table TID tiZANidine HCl 4 MG HCl 4 MG t_as_ne HCl 4 MG eded} Losartan Losartan No 1{table QD Losartan Potassium Potassium t} Potassium 100 MG 100 MG 100 MG Carvedilol Carvedilol No Carvedilol 12.5 MG 12.5 MG 12.5 MG Silver Silver No 1{appli BID Silver sulfADIAZIN sulfADIAZIN cation} sulfADIAZI E 1 % E 1 % NE 1 % FLUoxetine FLUoxetine No 1{capsu QD FLUoxetine HCl 40 MG HCl 40 MG le} HCl 40 MG metFORMIN metFORMIN No 1{table BID metFORMIN HCl ER 500 HCl ER 500 t_with_ HCl ER 500 MG MG evening MG _meal} Meloxicam Meloxicam No 1{table QD Meloxicam 7.5 MG 7.5 MG t} 7.5 MG busPIRone busPIRone No busPIRone HCl 10 MG HCl 10 MG HCl 10 MG busPIRone busPIRone No 1{table TID busPIRone HCl 10 MG HCl 10 MG t} HCl 10 MG cloNIDine cloNIDine No cloNIDine HCl 0.3 MG HCl 0.3 MG HCl 0.3 MG FLUoxetine FLUoxetine No FLUoxetine HCl 40 MG HCl 40 MG HCl 40 MG metFORMIN metFORMIN No metFORMIN HCl ER 500 HCl ER 500 HCl ER 500 MG MG MG cloNIDine cloNIDine No cloNIDine HCl 0.3 MG HCl 0.3 MG HCl 0.3 MG Meloxicam Meloxicam No 1{table QD Meloxicam 7.5 MG 7.5 MG t} 7.5 MG cloNIDine cloNIDine No 1{table BID cloNIDine HCl 0.3 MG HCl 0.3 MG t} HCl 0.3 MG Meloxicam Meloxicam No 1{table QD Meloxicam 7.5 MG 7.5 MG t} 7.5 MG busPIRone busPIRone No busPIRone HCl 10 MG HCl 10 MG HCl 10 MG amLODIPine amLODIPine No amLODIPine Besylate 5 Besylate 5 Besylate 5 MG MG MG Losartan Losartan No 1{table QD Losartan Potassium Potassium t} Potassium 100 MG 100 MG 100 MG tiZANidine tiZANidine No 1{table TID tiZANidine HCl 4 MG HCl 4 MG t_as_ne HCl 4 MG eded} Carvedilol Carvedilol No Carvedilol 12.5 MG 12.5 MG 12.5 MG FLUoxetine FLUoxetine No 1{capsu QD FLUoxetine HCl 40 MG HCl 40 MG le} HCl 40 MG metFORMIN metFORMIN No 1{table BID metFORMIN HCl ER 500 HCl ER 500 t_with_ HCl ER 500 MG MG evening MG _meal} Silver Silver No 1{appli BID Silver sulfADIAZIN sulfADIAZIN cation} sulfADIAZI E 1 % E 1 % NE 1 % Prazosin Prazosin No Prazosin HCl 2 MG HCl 2 MG HCl 2 MG busPIRone busPIRone No 1{table TID busPIRone HCl 10 MG HCl 10 MG t} HCl 10 MG FLUoxetine FLUoxetine No FLUoxetine HCl 40 MG HCl 40 MG HCl 40 MG metFORMIN metFORMIN No metFORMIN HCl ER 500 HCl ER 500 HCl ER 500 MG MG MG busPIRone busPIRone No busPIRone HCl 10 MG HCl 10 MG HCl 10 MG Meloxicam Meloxicam No 1{table QD Meloxicam 7.5 MG 7.5 MG t} 7.5 MG busPIRone busPIRone No busPIRone HCl 10 MG HCl 10 MG HCl 10 MG Prazosin Prazosin No Prazosin HCl 2 MG HCl 2 MG HCl 2 MG amLODIPine amLODIPine No amLODIPine Besylate 5 Besylate 5 Besylate 5 MG MG MG Losartan Losartan No 1{table QD Losartan Potassium Potassium t} Potassium 100 MG 100 MG 100 MG tiZANidine tiZANidine No 1{table TID tiZANidine HCl 4 MG HCl 4 MG t_as_ne HCl 4 MG eded} Carvedilol Carvedilol No Carvedilol 12.5 MG 12.5 MG 12.5 MG FLUoxetine FLUoxetine No 1{capsu QD FLUoxetine HCl 40 MG HCl 40 MG le} HCl 40 MG metFORMIN metFORMIN No 1{table BID metFORMIN HCl ER 500 HCl ER 500 t_with_ HCl ER 500 MG MG evening MG _meal} Silver Silver No 1{appli BID Silver sulfADIAZIN sulfADIAZIN cation} sulfADIAZI E 1 % E 1 % NE 1 % cloNIDine cloNIDine No cloNIDine HCl 0.3 MG HCl 0.3 MG HCl 0.3 MG busPIRone busPIRone No 1{table TID busPIRone HCl 10 MG HCl 10 MG t} HCl 10 MG busPIRone busPIRone No 1{table TID busPIRone HCl 10 MG HCl 10 MG t} HCl 10 MG FLUoxetine FLUoxetine No 1{capsu QD FLUoxetine HCl 40 MG HCl 40 MG le} HCl 40 MG FLUoxetine FLUoxetine No FLUoxetine HCl 40 MG HCl 40 MG HCl 40 MG busPIRone busPIRone No busPIRone HCl 10 MG HCl 10 MG HCl 10 MG Prazosin Prazosin No Prazosin HCl 2 MG HCl 2 MG HCl 2 MG Losartan Losartan No 1{table QD Losartan Potassium Potassium t} Potassium 100 MG 100 MG 100 MG metFORMIN metFORMIN No metFORMIN HCl ER 500 HCl ER 500 HCl ER 500 MG MG MG Silver Silver No 1{appli BID Silver sulfADIAZIN sulfADIAZIN cation} sulfADIAZI E 1 % E 1 % NE 1 % tiZANidine tiZANidine No 1{table TID tiZANidine HCl 4 MG HCl 4 MG t_as_ne HCl 4 MG eded} metFORMIN metFORMIN No 1{table BID metFORMIN HCl ER 500 HCl ER 500 t_with_ HCl ER 500 MG MG evening MG _meal} Silver Silver No 1{appli BID Silver sulfADIAZIN sulfADIAZIN cation} sulfADIAZI E 1 % E 1 % NE 1 % Ondansetron Ondansetron No 1{table Ondansetro HCl 4 MG HCl 4 MG t} n HCl 4 MG amLODIPine amLODIPine No amLODIPine Besylate 5 Besylate 5 Besylate 5 MG MG MG Meloxicam Meloxicam No 1{table QD Meloxicam 7.5 MG 7.5 MG t} 7.5 MG cloNIDine cloNIDine No cloNIDine HCl 0.3 MG HCl 0.3 MG HCl 0.3 MG Carvedilol Carvedilol No Carvedilol 12.5 MG 12.5 MG 12.5 MG Carvedilol Carvedilol No Carvedilol 12.5 MG 12.5 MG 12.5 MG tiZANidine tiZANidine No 1{table TID tiZANidine HCl 4 MG HCl 4 MG t_as_ne HCl 4 MG eded} Meloxicam Meloxicam No 1{table QD Meloxicam 7.5 MG 7.5 MG t} 7.5 MG metFORMIN metFORMIN No metFORMIN HCl ER 500 HCl ER 500 HCl ER 500 MG MG MG busPIRone busPIRone No 1{table TID busPIRone HCl 10 MG HCl 10 MG t} HCl 10 MG FLUoxetine FLUoxetine No 1{capsu QD FLUoxetine HCl 40 MG HCl 40 MG le} HCl 40 MG FLUoxetine FLUoxetine No FLUoxetine HCl 40 MG HCl 40 MG HCl 40 MG Prazosin Prazosin No Prazosin HCl 2 MG HCl 2 MG HCl 2 MG Ondansetron Ondansetron No 1{table Ondansetro HCl 4 MG HCl 4 MG t} n HCl 4 MG Silver Silver No 1{appli BID Silver sulfADIAZIN sulfADIAZIN cation} sulfADIAZI E 1 % E 1 % NE 1 % cloNIDine cloNIDine No cloNIDine HCl 0.3 MG HCl 0.3 MG HCl 0.3 MG busPIRone busPIRone No busPIRone HCl 10 MG HCl 10 MG HCl 10 MG amLODIPine amLODIPine No amLODIPine Besylate 5 Besylate 5 Besylate 5 MG MG MG Carvedilol Carvedilol No Carvedilol 12.5 MG 12.5 MG 12.5 MG metFORMIN metFORMIN No 1{table BID metFORMIN HCl ER 500 HCl ER 500 t_with_ HCl ER 500 MG MG evening MG _meal} Losartan Losartan No 1{table QD Losartan Potassium Potassium t} Potassium 100 MG 100 MG 100 MG Carvedilol Carvedilol No Carvedilol 12.5 MG 12.5 MG 12.5 MG Meloxicam Meloxicam No 1{table QD Meloxicam 7.5 MG 7.5 MG t} 7.5 MG FLUoxetine FLUoxetine No FLUoxetine HCl 40 MG HCl 40 MG HCl 40 MG Prazosin Prazosin No Prazosin HCl 2 MG HCl 2 MG HCl 2 MG metFORMIN metFORMIN No metFORMIN HCl ER 500 HCl ER 500 HCl ER 500 MG MG MG Ondansetron Ondansetron No 1{table Ondansetro HCl 4 MG HCl 4 MG t} n HCl 4 MG busPIRone busPIRone No busPIRone HCl 10 MG HCl 10 MG HCl 10 MG metFORMIN metFORMIN No 1{table BID metFORMIN HCl ER 500 HCl ER 500 t_with_ HCl ER 500 MG MG evening MG _meal} Losartan Losartan No 1{table QD Losartan Potassium Potassium t} Potassium 100 MG 100 MG 100 MG FLUoxetine FLUoxetine No FLUoxetine HCl 40 MG HCl 40 MG HCl 40 MG tiZANidine tiZANidine No 1{table TID tiZANidine HCl 4 MG HCl 4 MG t_as_ne HCl 4 MG eded} Prazosin Prazosin No Prazosin HCl 2 MG HCl 2 MG HCl 2 MG FLUoxetine FLUoxetine No 1{capsu QD FLUoxetine HCl 40 MG HCl 40 MG le} HCl 40 MG amLODIPine amLODIPine No amLODIPine Besylate 5 Besylate 5 Besylate 5 MG MG MG Silver Silver No 1{appli BID Silver sulfADIAZIN sulfADIAZIN cation} sulfADIAZI E 1 % E 1 % NE 1 % busPIRone busPIRone No 1{table TID busPIRone HCl 10 MG HCl 10 MG t} HCl 10 MG cloNIDine cloNIDine No cloNIDine HCl 0.3 MG HCl 0.3 MG HCl 0.3 MG busPIRone busPIRone No busPIRone HCl 10 MG HCl 10 MG HCl 10 MG tiZANidine tiZANidine No 1{table TID tiZANidine HCl 4 MG HCl 4 MG t_as_ne HCl 4 MG eded} Carvedilol Carvedilol No Carvedilol 12.5 MG 12.5 MG 12.5 MG Ondansetron Ondansetron No 1{table Ondansetro HCl 4 MG HCl 4 MG t} n HCl 4 MG Losartan Losartan No 1{table QD Losartan Potassium Potassium t} Potassium 100 MG 100 MG 100 MG metFORMIN metFORMIN No metFORMIN HCl ER 500 HCl ER 500 HCl ER 500 MG MG MG cloNIDine cloNIDine No cloNIDine HCl 0.3 MG HCl 0.3 MG HCl 0.3 MG Meloxicam Meloxicam No 1{table QD Meloxicam 7.5 MG 7.5 MG t} 7.5 MG FLUoxetine FLUoxetine No FLUoxetine HCl 40 MG HCl 40 MG HCl 40 MG Silver Silver No 1{appli BID Silver sulfADIAZIN sulfADIAZIN cation} sulfADIAZI E 1 % E 1 % NE 1 % cloNIDine cloNIDine No 1{table BID cloNIDine HCl 0.3 MG HCl 0.3 MG t} HCl 0.3 MG busPIRone busPIRone No 1{table TID busPIRone HCl 15 MG HCl 15 MG t} HCl 15 MG tiZANidine tiZANidine No 1{table TID tiZANidine HCl 4 MG HCl 4 MG t_as_ne HCl 4 MG eded} metFORMIN metFORMIN No 1{table BID metFORMIN HCl ER 500 HCl ER 500 t_with_ HCl ER 500 MG MG evening MG _meal} amLODIPine amLODIPine No 1{table QD amLODIPine Besylate 10 Besylate 10 t} Besylate MG MG 10 MG Carvedilol Carvedilol No Carvedilol 12.5 MG 12.5 MG 12.5 MG Prazosin Prazosin No Prazosin HCl 2 MG HCl 2 MG HCl 2 MG metFORMIN metFORMIN No metFORMIN HCl ER 500 HCl ER 500 HCl ER 500 MG MG MG QUEtiapine QUEtiapine No 1{table QD QUEtiapine Fumarate 25 Fumarate 25 t_at_be Fumarate MG MG dtime} 25 MG amLODIPine amLODIPine No 1{table QD amLODIPine Besylate 10 Besylate 10 t} Besylate MG MG 10 MG Losartan Losartan No 1{table QD Losartan [...] Name Observation Time Observation Value Comments Source height 2022-05-23 60 [in_i] [facility] [place] [place] 09:[place]:00 [facility] weight 2022-05-23 292 [lb_av] [facility] [place] - 09:00:00 [facility] bmi 2022-05-23 57.02 kg/m2 [facility] [place] - 09:00:00 [facility] Systolic blood 2022-05-07 149 mm[Hg] pt states [facility] o f pressure 03:30:00 has not taken [facility] nighttime Branch bp meds Diastolic blood 2022-05-07 109 mm[Hg] pt states [facility] pressure 03:30:00 has not taken [facility] nighttime Branch bp meds Heart rate 2022-05-07 73 /min [facility] 03:30:00 [facility] Respiratory rate 2022-05-07 13 /min [facility] 03:30:00 [facility] Oxygen saturation 2022-05-07 98 /min [facility] in Arterial blood 03:30:00 [facility] by Pulse oximetry Branch BMI 2022-05-06 58.00 kg/m2 University [facility] :58:00 [facility] Body temperature 2022-05-06 37.22 Bessy [facility] :58:00 [facility] Body height 2022-05-06 152.4 cm [facility] :58:00 [facility] Body weight 2022-05-06 134.718 kg [facility] :58:00 [facility] height 2022-04-09 60 [in_i] [facility] [place] - 13:45:00 [facility] weight 2022-04-09 294 [lb_av] [facility] [place] - 13:45:00 [facility] temperature 2022-04-09 98.3 [degF] [facility] - 13:45:00 [facility] bmi 2022-04-09 57.41 kg/m2 [facility] - 13:45:00 [facility] blood pressure 2022-04-09 124 mm[Hg] [facility] - systolic 13:45:00 [facility] blood pressure 2022-04-09 86 mm[Hg] [facility] - diastolic 13:45:00 [facility] height 2022-03-11 60 [in_i] [facility] - 14:00:00 [facility] weight 2022-03-11 297 [lb_av] [facility] - 14:00:00 [facility] temperature 2022-03-11 96.9 [degF] [facility] - 14:00:00 [facility] bmi 2022-03-11 58.00 kg/m2 [facility] - 14:00:00 [facility] blood pressure 2022-03-11 133 mm[Hg] [facility] - systolic 14:00:00 [facility] blood pressure 2022-03-11 82 mm[Hg] [facility] - diastolic 14:00:00 [facility] height 2022-02-04 60 [in_i] [facility] - 15:15:00 [facility] weight 2022-02-04 300 [lb_av] [facility] - 15:15:00 [facility] temperature 2022-02-04 97.7 [degF] [facility] - 15:15:00 [facility] bmi 2022-02-04 58.58 kg/m2 [facility] - 15:15:00 [facility] blood pressure 2022-02-04 116 mm[Hg] [facility] - systolic 15:15:00 [facility] blood pressure 2022-02-04 76 mm[Hg] [facility] - diastolic 15:15:00 [facility] height 2022-01-17 60 [in_i] [facility] - 15:30:00 [facility] weight 2022-01-17 300 [lb_av] [facility] - 15:30:00 [facility] temperature 2022-01-17 97.3 [degF] [facility] - 15:30:00 [facility] bmi 2022-01-17 58.58 kg/m2 [facility] - 15:30:00 [facility] blood pressure 2022-01-17 136 mm[Hg] [facility] - systolic 15:30:00 [facility] blood pressure 2022-01-17 86 mm[Hg] [facility] - diastolic 15:30:00 [facility] height 2021-12-10 60 [in_i] [facility] - 10:15:00 [facility] weight 2021-12-10 300 [lb_av] [facility] - 10:15:00 [facility] temperature 2021-12-10 98.3 [degF] [facility] - 10:15:00 [facility] bmi 2021-12-10 58.58 kg/m2 [facility] - 10:15:00 [facility] blood pressure 2021-12-10 136 mm[Hg] [facility] - systolic 10:15:00 [facility] blood pressure 2021-12-10 86 mm[Hg] [facility] - diastolic 10:15:00 [facility] height 2021-11-15 60 [in_i] [facility] - 11:40:00 [facility] weight 2021-11-15 300 [lb_av] [facility] - 11:40:00 [facility] bmi 2021-11-15 58.58 kg/m2 [facility] - 11:40:00 [facility] height 2021-10-16 60 [in_i] [facility] - 14:40:00 [facility] weight 2021-10-16 298 [lb_av] [facility] - 14:40:00 [facility] bmi 2021-10-16 58.19 kg/m2 [facility] - 14:40:00 [facility] Systolic blood 2021-10-16 159 mm[Hg] [facility] pressure 00:34:00 [facility] Diastolic blood 2021-10-16 120 mm[Hg] University o f pressure 00:34:00 [facility] Heart rate 2021-10-16 83 /min [facility] 00:34:00 [facility] Body temperature 2021-10-16 37.11 Bessy [facility] 00:34:00 [facility] Respiratory rate 2021-10-16 18 /min [facility] 00:34:00 [facility] Body height 2021-10-16 152.4 cm [facility] 00:34:00 [facility] Body weight 2021-10-16 135.172 kg [facility] 00:34:00 [facility] BMI 2021-10-16 58.20 kg/m2 [facility] 00:34:00 [facility] Oxygen saturation 2021-10-16 97 /min [facility] Arterial blood 00:34:00 [facility] Pulse oximetry [place] height 2021-10-04 60 [in_i] [facility] [place] - 13:30:00 [facility] weight 2021-10-04 301 [lb_av] [facility] [place] - 13:30:00 [facility] temperature 2021-10-04 98.2 [degF] [facility] [place] - 13:30:00 [facility] bmi 2021-10-04 58.78 kg/m2 [facility] [place] - 13:30:00 [facility] blood pressure 2021-10-04 152 mm[Hg] [facility] [place] - systolic 13:30:00 [facility] blood pressure 2021-10-04 90 mm[Hg] [facility] [place] - diastolic 13:30:00 [facility] Systolic blood 2021-09-08 150 mm[Hg] [facility] pressure 14:03:00 [facility] Diastolic blood 2021-09-08 111 mm[Hg] University o f pressure 14:03:00 [facility] Heart rate 2021-09-08 83 /min [facility] 14:03:00 [facility] Body temperature 2021-09-08 36.94 Bessy [facility] 14:03:00 [facility] Respiratory rate 2021-09-08 22 /min [facility] 14:03:00 [facility] Body height 2021-09-08 152.4 cm [facility] 14:03:00 [facility] Body weight 2021-09-08 133.811 kg [facility] 14:03:00 [facility] BMI 2021-09-08 57.61 kg/m2 [facility] 14:03:00 [facility] Oxygen saturation 2021-09-08 96 /min [facility] Arterial blood 14:03:00 [facility] by Pulse oximetry Branch height 2021-09-06 60 [in_i] [facility] - 09:20:00 [facility] weight 2021-09-06 300.4 [lb_av] [facility] - 09:20:00 [facility] temperature 2021-09-06 97.9 [degF] [facility] - 09:20:00 [facility] bmi 2021-09-06 58.66 kg/m2 [facility] - 09:20:00 [facility] oximetry 2021-09-06 97 % [facility] - 09:20:00 [facility] respiratory rate 2021-09-06 18 /min [facility] - 09:20:00 [facility] blood pressure 2021-09-06 134 mm[Hg] [facility] - systolic 09:20:00 [facility] blood pressure 2021-09-06 82 mm[Hg] [facility] - diastolic 09:20:00 [facility] height 2021-07-12 60 [in_i] [facility] - 10:40:00 [facility] weight 2021-07-12 296.4 [lb_av] [facility] - 10:40:00 [facility] temperature 2021-07-12 97.2 [degF] [facility] - 10:40:00 [facility] bmi 2021-07-12 57.88 kg/m2 [facility] - 10:40:00 [facility] oximetry 2021-07-12 95 % [facility] - 10:40:00 [facility] respiratory rate 2021-07-12 18 /min [facility] - 10:40:00 [facility] blood pressure 2021-07-12 138 mm[Hg] [facility] - systolic 10:40:00 [facility] blood pressure 2021-07-12 89 mm[Hg] [facility] - diastolic 10:40:00 [facility] Procedures Procedure Date / Time Performed Performing Clinician Sour e URINALYSIS 2022-05-07 00:31:00 Naveen George o f [facility] LIPASE 2022-05-07 00:31:00 Naveen George [place] [facility] [place] [facility] MAGNESIUM 2022-05-07 00:31:00 Naveen George [facility] COMP. METABOLIC PANEL 2022-05-07 00:31:00 Naveen George [facility] ([id number]) Medical Branch CBC WITH DIFF 2022-05-07 00:31:00 Naveen George [place] o [facility] [place] ABDOMEN PELVIS WO 2022-05-07 00:14:24 Naveen George [facility] CONTRAST Medical Branch POCT TEST 2022-05-06 23:45:00 Naveen George [facility] CONSENT/REFUSAL FOR 2022-05-06 22:42:18 Doctor Unassigned, [facility] Name [facility] Branch TREATMENT ASSIGNMENT OF BENEFITS 2021-11-29 14:39:09 Doctor Unassigned, No [facility] Medical Branch CONSENT/REFUSAL FOR 2021-10-16 00:23:13 Doctor Unassigned, No [facility] AND Name Medical Branch TREATMENT NOTICE OF PRIVACY 2021-09-08 13:58:17 Doctor Unassigned, No [facility] PRACTICES Name Medical Branch CONSENT/REFUSAL FOR 2021-09-08 13:57:48 Doctor Unassigned, No [facility] [place] DIAGNOSIS AND Name Medical Branch TREATMENT Encounters Start End Encounter Admission Attending Care Care Encounter Source Date/Time Date/Time Type Type Clinicians Facility Department ID 2022-05-23 Outpatient JACKI Plata [facility] [id number] Common 09:08:01 Sindi [id number] [facility] 2022-05-22 Outpatient JACKI Plata [facility] [id number] Common 09:37:02 Sindi [id number] [facility] 2022-05-08 Outpatient JACKI Plata [facility] [id number] Common 09:40:02 Sindi [id number] [facility] 2022-04-23 [facility] [id number] Common 14:27:02 Sindi [id number] [facility] 2022-02-18 Outpatient Plata, STLMLC STLMLC [id number] Common 11:26:01 Sindi [facility] 2022-02-13 Outpatient Plata, STLMLC STLMLC [id number] Common 09:37:04 [facility] 2022-01-15 Outpatient Plata, STLMLC STLMLC [id number] Common 09:34:02 [facility] 2021-12-10 Outpatient Plata, STLMLC STLMLC [id number] Common 17:00:02 [facility] 2021-11-14 Outpatient Plata, STLMLC STLMLC [id number] Common 10:29:03 [facility] 2021-11-13 Outpatient Plata, STLMLC STLMLC [id number] Common 08:57:02 [facility] 2021-10-15 Outpatient Plata, STLMLC STLMLC [id number] Common 14:19:01 [facility] 2021-10-08 Outpatient Plata, STLMLC STLMLC [id number] Common 09:17:02 [facility] 2021-10-05 Outpatient Plata, STLMLC STLMLC [id number] Common 09:26:02 [facility] 2021-10-04 Outpatient Plata, STLMLC STLMLC [id number] Common 13:35:01 [facility] 2021-09-10 Outpatient Plata, STLMLC STLMLC [id number] Common 08:47:15 [facility] 2021-09-04 Outpatient Plata, STLMLC STLMLC [id number] Common 14:17:11 [facility] 2021-08-21 Outpatient Plata, STLMLC STLMLC [id number] Common 08:15:04 Sindi [facility] 2021-07-12 Outpatient Plata, STLMLC STLMLC [id number] Common 10:36:03 Sindi [facility] 2022-05-23 2022-05-23 OFFICE STLMLC STLMLC [id number] Co mmon 00:00:00 00:00:00 VISIT [facility] LEVEL 4 [facility] 2022-05-06 2022-05-06 Emergency X Naveen GEORGE [facility] ERT [id number] Univers 16:58:00 21:47:00 ity [facility] 2022-05-06 2022-05-06 Emergency Mor[place], [place] O [facility] [id number] Univers 16:58:00 21:47:00 Naveen George [place] [id number] [facility] [id number] [id number] [place] [address] Branch 2022-04-09 2022-04-09 NON-BILLAB STLMLC STLMLC [id number] Common 00:00:00 00:00:00 LE VISIT [facility] 2022-03-11 2022-03-11 NON-BILLAB STLMLC STLMLC [id number] Common 00:00:00 00:00:00 LE VISIT [facility] 2022-02-21 2022-02-21 (TEL) STLMLC STLMLC [id number] Co mmon 00:00:00 00:00:00 [facility] 2022-02-18 2022-02-18 (TEL) STLMLC STLMLC [id number] Co mmon 00:00:00 00:00:00 [facility] 2022-02-05 2022-02-05 (TEL) STLMLC STLMLC [id number] Co mmon 00:00:00 00:00:00 [facility] 2022-02-04 2022-02-04 (TEL) STLMLC STLMLC [id number] Co mmon 00:00:00 00:00:00 [facility] 2022-02-04 2022-02-04 NON-BILLAB STLMLC STLMLC [id number] Common 00:00:00 00:00:00 LE VISIT [facility] 2022-01-18 2022-01-18 (TEL) STLMLC STLMLC [id number] Co mmon 00:00:00 00:00:00 [facility] 2022-01-17 2022-01-17 NON-BILLAB STLMLC STLMLC [id number] Common 00:00:00 00:00:00 LE VISIT [facility] 2022-01-16 2022-01-16 (TEL) STLMLC STLMLC [id number] Co mmon 00:00:00 00:00:00 [facility] 2022-01-14 2022-01-14 (TEL) STLMLC STLMLC [id number] Co mmon 00:00:00 00:00:00 [facility] 2022-01-08 2022-01-08 (TEL) STLMLC STLMLC [id number] Co mmon 00:00:00 00:00:00 [facility] 2021-12-19 2021-12-19 (TEL) STLMLC STLMLC [id number] Co mmon 00:00:00 00:00:00 [facility] 2021-12-12 2021-12-12 (TEL) STLMLC STLMLC [id number] Co mmon 00:00:00 00:00:00 [facility] 2021-12-10 2021-12-10 OFFICE STLMLC STLMLC [id number] Co mmon 00:00:00 00:00:00 VISIT [facility] 4 [facility] 2021-12-05 2021-12-05 (TEL) STLMLC STLMLC [id number] Co mmon 00:00:00 00:00:00 [facility] 2021-11-29 2021-11-29 Outpatient R NADIR [facility] [id number] Univers 09:40:27 23:59:00 KENNETH ity of [facility] 2021-11-29 2021-11-29 Hospital Nadir, [facility] [id number] Univers 09:40:27 23:59:00 Encounter Kenneth [facility] [id number] [id number] [id number] [facility] 038 Branch OFFICE BUILDING 2021-11-29 2021-11-29 Orders Doctor CINDY [id number] Univers 00:00:00 00:00:00 Only Unassigned, WYATT [id number] ity of [place] [facility] [id number] [place] [id number] [facility] 009 Branch 2021-11-15 2021-11-15 OFFICE STLMLC STLMLC [id number] Co mmon 00:00:00 00:00:00 VISIT [facility] PT LEVEL 3 - [facility] 2021-10-19 2021-10-19 (TEL) STLMLC STLMLC [id number] Co mmon 00:00:00 00:00:00 [facility] 2021-10-16 2021-10-16 OFFICE STLMLC STLMLC [id number] Co mmon 00:00:00 00:00:00 VISIT [facility] PT LEVEL 3 - [facility] 2021-10-15 2021-10-15 Emergency X TONG, [facility] ERT [id number] Univers 19:36:00 20:05:00 VIC ity of [facility] 2021-10-15 2021-10-15 Emergency Tong, [facility] [id number] Univers 19:36:00 20:05:00 Vic ELIZALDE [id number] i ty of [facility] [id number] [id number] [place] [address] Branch 2021-10-12 2021-10-12 (TEL) STLMLC STLMLC [id number] Co mmon 00:00:00 00:00:00 [facility] 2021-10-04 2021-10-04 CONSULT - STLMLC STLMLC [id number] Common 00:00:00 00:00:00 OFFICE, L4 [facility] 2021-09-12 2021-09-12 (TEL) STLMLC STLMLC [id number] Co mmon 00:00:00 00:00:00 [facility] 2021-09-08 2021-09-08 Emergency [facility] [id number] Univers 09:05:00 10:50:00 Sarah ELIZALDE [id number] christine [facility] [id number] [facility] [id number] [address] 2021-09-08 2021-09-08 Emergency X [facility] ERT [id number] Univers 09:05:00 10:50:00 [facility] 2021-09-06 2021-09-06 OFFICE STLMLC STLMLC [id number] Co mmon 00:00:00 00:00:00 VISIT [facility] ESTAB PT - CHI LEVEL 4 [facility] 2021-07-12 2021-07-12 OFFICE STLMLC STLMLC [id number] Co mmon 00:00:00 00:00:00 VISIT [facility] ESTAB PT - [facility]I LEVEL 4 [facility] Results Test Description Test Time Test Comments Results Result Comments Source MAGNESIUM 2022-05-07 01:00:03 Test Item Value Reference Range Interpretation Comme nts MAGNESIUM (test code = 7934872953) 1.9 mg/dL 1.7-2.4 Lab Interpretation (test code = 12653-0) [facility][id number][facility]2022-05-07 00:59:43 Test Item Value Reference Range Interpretation Comments NA (test code = 138 mmol/L 135-145 5304838073) K (test code = 4.3 mmol/L 3.5-5.0 0659575415) CL (test code = 104 mmol/L 98-108 0973997442) CO2 TOTAL (test code = 22 mmol/L 23-31 L 2034888991) AGAP (test code = 2-16 7657079290) BUN (test code = 12 mg/dL 7-23 5088702324) GLUCOSE (test code = 88 mg/dL 70-110 0605266022) CREATININE (test code = 0.73 mg/dL 0.50-1.04 5015973067) TOTAL BILI (test code = 0.7 mg/dL 0.1-1.3 7903599141) CALCIUM (test code = 9.2 mg/dL 8.6-10.6 9248122948) T PROTEIN (test code = 7.9 g/dL 6.3-8.2 7305746617) ALBUMIN (test code = 4.7 g/dL 3.5-5.0 4562902197) ALK PHOS (test code = 90 U/L 34-122 3418652832) ALTv (test code = 60 U/L 5-35 H 1742-6) AST(SGOT) (test code = 49 U/L 13-40 H 6733532965) eGFR (test code = mL/min/1.73m2 6144072844) JILLIAN (test code = JILLIAN) Association of Glomerular Filtration Rate (GFR) and Staging of Kidney Disease* + --+ --+ ------+| GFR (mL/min/1.73 m2) ?| With Kidney Damage ?| ?Without Kidney Damage+ --------+ --------+ +| ?>90 ?| ?Stage one ?| ? Normal ?+ ---+ ---+ -------+| ?60-89 ?| ?Stage two ?| ? Decreased GFR ? + --+ --+ ------+| ?30-59 ?| ?Stage three ?| ? Stage three ? + --+ --+ ------+| ?15-29 ?| ?Stage four ? | ? Stage four ?+ ---+ ---+ -------+| ?<15 (or dialysis) ? ?| ?Stage five ? | ? Stage five ?+ ---+ ---+ -------+ *Each stage assumes the associated GFR level has been in effect for at least three months. ?Stages 1 to 5, with or without kidney disease, indicate chronic kidney disease. Notes: Determination of stages one and two (with eGFR >59mL/min/1.73 m2) requires estimation of kidney damage for at least three months as defined by structural or functional abnormalities of the kidney, manifested by either:Pathological abnormalities or Markers of kidney damage (including abnormalities in the composition of the blood or urine or abnormalities in imaging tests). Lab Interpretation Abnormal (test code = 53148-0) [facility] 00:59:43 Test Item Value Reference Range Interpretation Comments LIPASE (test code = 7167213142) 99 U/L 0-220 Lab Interpretation (test code = Normal 25504-1) [facility] WITH [id number] 00:44:41 Test Item Value Reference Range Interpretation Comments WBC (test code = See_Comment [Automated 3890-2) message] The sy stem which generated this result transmitted reference range : 4.30 - 11.10 10*3/?L. The reference range was not used to interpret this result as normal/abnormal . RBC (test code = See_Comment [Automated 909-8) message] The sy stem which generated this result transmitted reference range : 3.93 - 5.25 10*6/?L. The reference range was not used to interpret this result as normal/abnormal . HGB (test code = 13.6 g/dL 11.6-15.0 718-7) HCT (test code = 39.5 % 35.7-45.2 4544-3) MCV (test code = 86.8 fL 80.6-95.5 787-2) MCH (test code = 29.9 pg 25.9-32.8 785-6) MCHC (test code = 34.4 g/dL 31.6-35.1 786-4) RDW-SD (test code = 40.3 fL 39.0-49.9 92671-7) RDW-CV (test code = 12.8 % 12.0-15.5 788-0) PLT (test code = See_Comment [Automated 777-3) message] The sy stem which generated this result transmitted reference range : 166 - 358 10*3/ ?L. The reference r tk was not used to interpret this result as normal/abnormal . MPV (test code = 10.2 fL 9.5-12.9 41753-9) NRBC/100 WBC (test See_Comment [Automat ed code = 2612988890) message] The system which generated this result transmitted reference range : 0.0 - 10.0 /100 WBCs. The refer ence range was not u sed to interpret th is result as normal/abnormal . NRBC x10^3 (test code See_Comment [Auto mated = 6504435604) message] The s ystem which generated this result transmitted reference range : 10*3/?L. The reference range was not used to interpret this result as normal/abnormal . GRAN MAT (NEUT) % 58.6 % (test code = 770-8) IMM GRAN % (test code 0.60 % = 7903025093) LYMPH % (test code = 30.8 % 736-9) MONO % (test code = 6.9 % 5905-5) EOS % (test code = 2.3 % 713-8) BASO % (test code = 0.8 % 706-2) GRAN MAT x10^3(ANC) 6.20 10*3/uL 1.88-7.09 (test code = 8910101421) IMM GRAN x10^3 (test 0.06 10*3/uL 0.00-0.06 code = 5878264996) LYMPH x10^3 (test code 3.26 10*3/uL 1.32-3.29 = 731-0) MONO x10^3 (test code 0.73 10*3/uL 0.33-0.92 = 742-7) EOS x10^3 (test code = 0.24 10*3/uL 0.03-0.39 711-2) BASO x10^3 (test code 0.08 10*3/uL 0.01-0.07 H = 704-7) Lab Interpretation Abnormal (test code = 14681-4) [facility] HospitalPONJ [id number] 23:45:00 Test Item Value Reference Range Interpretation Comments POCT PREG (test code = 1605) Negative On board controls acceptable with Present C Line (test code = 3574) POCT PREG LOT # (test code = HCG [id number]) POCT PREG TEST DATE (test 07/20/2023 code = 3576) Lab Interpretation (test code = Normal 13699-9) [facility]"
[2022-06-08] MEDS ORDERED: dexAMETHasone 10 MG/ML VIAL ONE (15:09)
[2022-06-08 16:07] LABS: SARS-COV-2 RT PCR NEGATIVE (NEGATIVE)
--- NOTE | 2022-06-08 16:11 | ER ---
Nurse's Notes [facility] Name: Adela Jaime Age: 36 yrs Sex: Female : 1985 Arrival Date: 06/08/2022 Time: 14:54 Bed 14 Private MD: Diagnosis: Acute sinusitis, unspecified Presentation: 06/08 14:57 Chief complaint: Patient states: cough, congestion x 4 days. Reports having fever, aa5 chills, body aches that resolved. Coronavirus screen: congestion, cough unrelated to allergies. Ebola Screen: Patient denies travel to an Ebola-affected area in the 21 days before illness onset. Initial Sepsis Screen: Does the patient meet any 2 criteria? No. Patient's initial sepsis screen is negative. Does the patient have a suspected source of infection? No. Patient's initial sepsis screen is negative. Risk Assessment: Do you want to hurt yourself or someone else? Patient reports no desire to harm self or others. Onset of symptoms was May 2022. 14:57 Method Of Arrival: Ambulatory aa5 14:57 Acuity: TARA 4 aa5 Historical: - Allergies: 14:59 No Known Allergies; aa5 - PMHx: 14:58 Anxiety; depressive disorder; Hypertensive disorder; aa5 - PSHx: 14:58 carpel tunnel sx right hand; hysterectomy; aa5 - Immunization history:: Adult Immunizations unknown. - Social history:: Smoking status: Patient denies any tobacco usage or history of. Screenin:10 [facility] ED Fall Risk Assessment (Adult) Score/Fall Risk Level 0 - 2 = Low Risk hb Oriented to surroundings, Maintained a safe environment, Educated pt \T\ family on fall prevention, incl call for assistance when getting out of bed. Abuse screen: Denies threats or abuse. Denies injuries from another. Nutritional screening: No deficits noted. Tuberculosis screening: No symptoms or risk factors identified. Assessment: 15:10 General: Appears in no apparent distress. Behavior is calm, cooperative. Pain: Pain hb currently is 3 out of 10 on a pain scale. Neuro: Level of Consciousness is awake, alert, obeys commands, Oriented to person, place, time, situation. Cardiovascular: Patient's skin is warm and dry. Respiratory: Respiratory effort is even, unlabored, Respiratory pattern is regular, symmetrical. GI: No signs and/or symptoms were reported involving the gastrointestinal system. : No signs and/or symptoms were reported regarding the genitourinary system. EENT: No signs and/or symptoms were reported regarding the EENT system. Derm: Skin is pink, warm \T\ dry. Musculoskeletal: No signs and/or symptoms reported regarding the musculoskeletal system. 15:54 Reassessment: Patient appears in no apparent distress at this time. Patient and/or hb family updated on plan of care and expected duration. Pain level reassessed. Patient is alert, oriented x 3, equal unlabored respirations, skin warm/dry/pink. Vital Signs: 14:57 BP 135 / 97; Pulse 76; Resp 20 S; Temp 97.8(TE); Pulse Ox 99% on R/A; Weight 133.81 kg aa5 (R); Height 5 ft. 0 in. (152.40 cm) (R); 14:57 Body Mass Index 57.61 (133.81 kg, 152.40 cm) aa5 ED Course: 14:54 Patient arrived in ED. aa5 14:54 Deanna Garcia FNP-C [facility]. kb 14:54 Steven Martin MD is Attending Physician. kb 14:57 Arm band placed on. aa5 14:58 Triage completed. aa5 15:05 Grace Adams, RN is Primary Nurse. hb 15:09 COVID-19/FLU A+B/RSV Sent. mm9 15:11 Patient has correct armband on for positive identification. hb 16:23 No provider procedures requiring assistance completed. Patient did not have IV access hb during this emergency room visit. Administered Medications: 15:10 Drug: Decadron (dexamethasone) 10 mg Route: IM; Site: left deltoid; hb Medication: 15:10 VIS not applicable for this client. hb Outcome: 16:11 Discharge ordered by . kb 16:23 Discharged to home ambulatory. hb 16:23 Condition: stable 16:23 Discharge instructions given to patient, Instructed on discharge instructions, follow up and referral plans. medication usage, Demonstrated understanding of instructions, follow-up care, medications, Prescriptions given X 1. 16:23 Patient left the ED. hb Signatures: Deanna Garcia FNP-C FNP-Ckb Calderon, Audri RN RN aa5 Grace Adams, RN RN hb Ezequiel, Tamar mm9
--- NOTE | 2022-06-08 16:11 | EDPHYS ---
Physician Documentation [facility] Name: Adela Jaime Age: 36 yrs Sex: Female : 1985 Arrival Date: 06/08/2022 Time: 14:54 Bed 14 Private MD: ED Physician Steven Martin HPI: 06/08 15:30 This 36 yrs old Female presents to ER via Ambulatory with complaints of Congestion. kb 15:30 The patient or guardian reports cough. Onset: The symptoms/episode began/occurred 4 kb day(s) ago. Severity of symptoms: At their worst the symptoms were moderate, in the emergency department the symptoms are unchanged. Modifying factors: The symptoms are alleviated by nothing, the symptoms are aggravated by nothing. Associated signs and symptoms: Pertinent positives: rhinorrhea, Nasal congestion. The patient has not experienced similar symptoms in the past. The patient has not recently seen a physician. Historical: - Allergies: 14:59 No Known Allergies; aa5 - PMHx: 14:58 Anxiety; depressive disorder; Hypertensive disorder; aa5 - PSHx: 14:58 carpel tunnel sx right hand; hysterectomy; aa5 - Immunization history:: Adult Immunizations unknown. - Social history:: Smoking status: Patient denies any tobacco usage or history of. ROS: 15:30 Constitutional: Negative for fever, chills, and weight loss. kb 15:30 ENT: Positive for rhinorrhea, sinus congestion. 15:30 Respiratory: Positive for cough. 15:30 All other systems are negative. Exam: 15:30 Constitutional: This is a well developed, well nourished patient who is awake, alert, kb and in no acute distress. Head/Face: Normocephalic, atraumatic. ENT: Moist Mucous membranes Cardiovascular: Regular rate and rhythm with a normal S1 and S2. No gallops, murmurs, or rubs. No pulse deficits. Respiratory: Respirations even and unlabored. No increased work of breathing. Talking in full sentences Skin: Warm, dry with normal turgor. Normal color. MS/ Extremity: Pulses equal, no cyanosis. Neurovascular intact. Full, normal range of motion. Neuro: Awake and alert, GCS 15, oriented to person, place, time, and situation. Moves all extremities. Normal gait. Vital Signs: 14:57 BP 135 / 97; Pulse 76; Resp 20 S; Temp 97.8(TE); Pulse Ox 99% on R/A; Weight 133.81 kg aa5 (R); Height 5 ft. 0 in. (152.40 cm) (R); 14:57 Body Mass Index 57.61 (133.81 kg, 152.40 cm) aa5 MDM: 14:55 Patient medically screened. 15:31 Differential Diagnosis: Bronchitis Influenza Upper Respiratory Infection Other kb Sinusitis, COVID. Data reviewed: vital signs, nurses notes. ED course: Patient is a 36-year-old female who presents with cough and congestion that started 4 days ago. States she had fever, chills, body aches on the first day but those symptoms have resolved. Has been taking Sudafed without relief. Lungs clear throughout on exam, respirations even and unlabored. TMs without erythema, bulging or fluid levels. We will obtain COVID, flu and RSV test.. 16:08 I considered the following discharge prescriptions or medication management in the emergency department I discussed and recommended Over The Counter medications, Antibiotics: At this time antibiotics are not recommended. Counseling: I had a detailed discussion with the patient and/or guardian regarding: the historical points, exam findings, and any diagnostic results supporting the discharge/admit diagnosis, lab results, the need for outpatient follow up, a family practitioner, to return to the emergency department if symptoms worsen or persist or if there are any questions or concerns that arise at home. ED course: Pt nontoxic in appearance, resp even and unlabored. COVID, flu and rsv tests negative. Pt educated on likely viral etiology of symptoms. . 06/08 14:59 Order name: COVID-19/FLU A+B/RSV 06/08 16:07 Order name: COVID-19/FLU A+B/RSV; Complete Time: 16:08 EDMS Administered Medications: 15:10 Drug: Decadron (dexamethasone) 10 mg Route: IM; Site: left deltoid; hb Disposition: 18:38 Co-signature as Attending Physician, Steven Martin MD I reviewed the patient's care rt provided by the Advanced Practice Provider and agree with the diagnosis and treatment plan. Disposition Summary: 06/08/22 16:11 Discharge Ordered Location: Home Condition: Stable Diagnosis - Acute sinusitis, unspecified kb Followup: kb - With: Emergency Department - When: As needed - Reason: Worsening of condition Followup: kb - With: Private Physician - When: 2 - 3 days - Reason: Recheck today's complaints, Continuance of care, Re-evaluation by your physician Discharge Instructions: - Discharge Summary Sheet kb - Sinusitis, Adult, [id number] kb Forms: - Medication Reconciliation Form kb - Thank You Letter kb - Antibiotic Education kb - Prescription Opioid Use kb - Work release form iw Prescriptions: - Prednisone 20 mg Oral Tablet - take 1 tablet by ORAL route once daily for 5 days; 5 tablet; Refills: 0, kb Product Selection Permitted Signatures: Dispatcher [employer] EDMS Deanna Garcia, VOCAL TEACHER-C VOCAL TEACHER-Mercedes Aguilar, RN RN aa5 Grace Adams, RN RN Steven Martin MD MD rt
[2022-06-08 16:33] VITALS: BP 135/97; TEMP 97.8; O2SAT 99
== END 2022-06-08 16:23 | disposition home or self-care (01) ==
LOC: ER 14:40
DX: J01.90 Acute sinusitis, unspecified (principal); Z20.822 Contact with and (suspected) exposure to COVID-19; I10 Essential (primary) hypertension
CPT/HCPCS: 0241U; 96372; 99283; J1100

== ENCOUNTER → 2023-07-12 | Emergency (ER) | payer OTHER, SELFPAY ==
[~2023-07-12] MED LIST: ACETAMINOPHEN 500 MG TAB ONE; AZITHROMYCIN 250 MG TAB ONE; predniSONE 20 MG TAB ONE
[2023-07-12 15:01] LABS: SARS-CoV-2 Antigen CONTROL BLUE LINE VIS/BG OK; SARS-CoV-2 Antigen Rapid Res Negative (Negative)
--- NOTE | 2023-07-12 16:10 | ER ---
Nurse's Notes [facility] Name: Adela Jaime Age: 37 yrs Sex: Female : 1985 Arrival Date: 07/12/2023 Time: 14:14 Bed 12 Private MD: Diagnosis: Acute pharyngitis, unspecified;Acute upper respiratory infection, unspecified Presentation: 07/11 14:22 Chief complaint: Patient states: cough, sore throat for past week and its getting ko1 worse. right ear feels clogged. has had fever but unknown how high due to no thermometer. Coronavirus screen: congestion, cough unrelated to allergies, fever, runny nose, sore throat. Ebola Screen: No symptoms or risks identified at this time. Initial Sepsis Screen: Does the patient meet any 2 criteria? No. Patient's initial sepsis screen is negative. Does the patient have a suspected source of infection? No. Patient's initial sepsis screen is negative. Risk Assessment: Do you want to hurt yourself or someone else? Patient reports no desire to harm self or others. Onset of symptoms is unknown. 14:22 Method Of Arrival: Ambulatory ko1 14:22 Acuity: TARA 4 ko1 Triage Assessment: 14:27 General: Appears in no apparent distress. Behavior is calm, cooperative, appropriate ko1 for age. Pain: Denies pain. EENT: No deficits noted. 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 - Social history:: Smoking status: Patient denies any tobacco usage or history of. Screenin:30 [facility] ED Fall Risk Assessment (Adult) History of falling in the last 3 months, ko1 including since admission No falls in past 3 months (0 pts) Confusion or Disorientation No (0 pts) Intoxicated or Sedated No (0 pts) Impaired Gait No (0 pts) Mobility Assist Device Used No (0 pt) Altered Elimination No (0 pt) Score/Fall Risk Level 0 - 2 = Low Risk Oriented to surroundings, Maintained a safe environment, Educated pt \T\ family on fall prevention, incl call for assistance when getting out of bed, Assessed \T\ reinforced patient's understanding of fall precautions, Provided non-skid footwear, Hourly rounding (assess needs \T\ fall precautionary measures) done, Used ambulatory aids as needed (educated on \T\ assisted with), Used gait belt as appropriate. Abuse screen: Denies threats or abuse. Denies injuries from another. Nutritional screening: No deficits noted. Tuberculosis screening: No symptoms or risk factors identified. Assessment: 14:30 Respiratory: Reports cough that is non-productive, persistent Airway is patent ko1 Respiratory effort is even, unlabored, Breath sounds are clear bilaterally. EENT: Throat is reddened. Vital Signs: 14:22 BP 128 / 95; Pulse 88; Resp 18; Temp 97.8; Pulse Ox 100% on R/A; ko1 15:33 BP 124 / 85; Pulse 82; Resp 15; Temp 98; Pulse Ox 99% ; ko1 ED Course: 14:16 Patient arrived in ED. rg4 14:18 Prosper Turpin MD is Attending Physician. [facility] 14:27 Triage completed. ko1 14:27 Arm band placed on right wrist. Patient placed in an exam room, on a stretcher, on ko1 environmental monitoring technician, on pulse oximetry, Patient notified of wait time. 14:30 Patient has correct armband on for positive identification. Provided Education on: na. ko1 14:30 No provider procedures requiring assistance completed. Patient did not have IV access ko1 during this emergency room visit. 14:36 SARS RAPID Sent. ko1 14:36 Flu Sent. ko1 14:36 Strep Sent. ko1 15:03 Suzette Munoz, GRACE is Primary Nurse. ko1 Administered Medications: 14:36 Drug: Acetaminophen PO 1000 mg PO once Route: PO; ko1 15:30 Follow up: Response: No adverse reaction ko1 16:09 Drug: predniSONE PO 40 mg PO once Route: PO; ko1 16:32 Follow up: Response: No adverse reaction ko1 16:10 Drug: AZITHromycin PO 500 mg PO once Route: PO; ko1 16:32 Follow up: Response: No adverse reaction ko1 Medication: 14:30 VIS not applicable for this client. ko1 Outcome: 16:09 Discharge ordered by . mita 16:33 Discharged to home ambulatory, ko1 16:33 Condition: stable 16:33 Discharge instructions given to patient, Instructed on discharge instructions, follow up and referral plans. medication usage, Demonstrated understanding of instructions, follow-up care, medications, Prescriptions given X 3, 16:33 Patient left the ED. ko1 Signatures: Prosper Turpin MD MD cha Garcia, Rubi 4 Suzette Muonz, GRACE RN ko1 Corrections: (The following items were deleted from the chart) 14:27 PSHx: gastric bypass (hysterectomy); ko1 ko1 14 14:27 PSHx: gastric bypass (hysterectomy); ko1 ko1
--- NOTE | 2023-07-12 16:10 | EDPHYS ---
Physician Documentation [facility] Name: Adela Jaime Age: 37 yrs Sex: Female : 1985 Arrival Date: 07/12/2023 Time: 14:14 Bed 12 Private MD: KWAME Physician Prosper Turpin HPI: 07/11 16:03 This 37 yrs old Female presents to ER via Ambulatory with complaints of Sore mita Throat. 16:03 The patient presents with sore throat. The patient describes throat pain as burning, mita constant. Onset: The symptoms/episode began/occurred 3 day(s) ago. Severity of symptoms: At their worst the symptoms were mild, in the emergency department the symptoms are unchanged. Associated signs and symptoms: The patient has no apparent associated signs or symptoms. The patient has not experienced similar symptoms in the past. 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 - Social history:: Smoking status: Patient denies any tobacco usage or history of. ROS: 16:03 Constitutional: Negative for fever, chills, and weight loss, Eyes: Negative for injury, mita pain, redness, and discharge, Neck: Negative for injury, pain, and swelling, Cardiovascular: Negative for chest pain, palpitations, and edema, Respiratory: Negative for shortness of breath, cough, wheezing, and pleuritic chest pain, Abdomen/GI: Negative for abdominal pain, nausea, vomiting, diarrhea, and constipation, Back: Negative for injury and pain, : Negative for injury, bleeding, discharge, and swelling, MS/Extremity: Negative for injury and deformity, Skin: Negative for injury, rash, and discoloration, Neuro: Negative for headache, weakness, numbness, tingling, and seizure, Psych: Negative for depression, anxiety, suicide ideation, homicidal ideation, and hallucinations, Allergy/Immunology: Negative for hives, rash, and allergies, Endocrine: Negative for neck swelling, polydipsia, polyuria, polyphagia, and marked weight changes, Hematologic/Lymphatic: Negative for swollen nodes, abnormal bleeding, and unusual bruising, 16:03 ENT: Positive for rhinorrhea, sinus congestion, sore throat, Exam: 16:03 Constitutional: This is a well developed, well nourished patient who is awake, alert, mita and in no acute distress. Head/Face: Normocephalic, atraumatic. Eyes: Pupils equal round and reactive to light, extra-ocular motions intact. Lids and lashes normal. Conjunctiva and sclera are non-icteric and not injected. Cornea within normal limits. Periorbital areas with no swelling, redness, or edema. Neck: Trachea midline, no thyromegaly or masses palpated, and no cervical lymphadenopathy. Supple, full range of motion without nuchal rigidity, or vertebral point tenderness. No Meningismus. Chest/axilla: Normal chest wall appearance and motion. Nontender with no deformity. No lesions are appreciated. Cardiovascular: Regular rate and rhythm with a normal S1 and S2. No gallops, murmurs, or rubs. Normal PMI, no JVD. No pulse deficits. Respiratory: Lungs have equal breath sounds bilaterally, clear to auscultation and percussion. No rales, rhonchi or wheezes noted. No increased work of breathing, no retractions or nasal flaring. Abdomen/GI: Soft, non-tender, with normal bowel sounds. No distension or tympany. No guarding or rebound. No evidence of tenderness throughout. Back: No spinal tenderness. No costovertebral tenderness. Full range of motion. Skin: Warm, dry with normal turgor. Normal color with no rashes, no lesions, and no evidence of cellulitis. MS/ Extremity: Pulses equal, no cyanosis. Neurovascular intact. Full, normal range of motion. Neuro: Awake and alert, GCS 15, oriented to person, place, time, and situation. Cranial nerves II-XII grossly intact. Motor strength 5/5 in all extremities. Sensory grossly intact. Cerebellar exam normal. Normal gait. 16:03 ENT: Posterior pharynx: Airway: normal, no evidence of obstruction, Tonsils: are normal in appearance, Uvula: normal, midline, swelling, is not appreciated, erythema, that is mild, exudate, is not appreciated, peritonsillar mass, is not appreciated, pooling of secretions, is not appreciated, Vital Signs: 14:22 BP 128 / 95; Pulse 88; Resp 18; Temp 97.8; Pulse Ox 100% on R/A; ko1 15:33 BP 124 / 85; Pulse 82; Resp 15; Temp 98; Pulse Ox 99% ; ko1 MDM: 14:18 Patient medically screened. [facility] 14:33 Patient medically screened. [facility] 16:06 Differential diagnosis: cocksackie virus, echovirus infection, group A strep mita tonsillitis, influenza, laryngitis, mononucleosis, pharyngitis, tonsillitis, upper respiratory infection, uvulitis. Antibiotic administration: The patient is discharged and will get outpatient antibiotics, Zithromax. Data reviewed: vital signs, nurses notes, lab test result(s), Flu: negative. 07/11 14:19 Order name: Strep [facility] 07/11 14:19 Order name: Flu; Complete Time: 15:52 [facility] 07/11 14:19 Order name: SARS RAPID; Complete Time: 15:52 [facility] 07/11 15:04 Order name: Throat Culture EDMS Administered Medications: 14:36 Drug: Acetaminophen PO 1000 mg PO once Route: PO; ko1 15:30 Follow up: Response: No adverse reaction ko1 16:09 Drug: predniSONE PO 40 mg PO once Route: PO; ko1 16:32 Follow up: Response: No adverse reaction ko1 16:10 Drug: AZITHromycin PO 500 mg PO once Route: PO; ko1 16:32 Follow up: Response: No adverse reaction ko1 Disposition Summary: 07/12/23 16:09 Discharge Ordered Notes: Location: Home [facility] Problem: new [facility] Symptoms: have improved mita Condition: Stable mita Diagnosis - Acute pharyngitis, unspecified mita - Acute upper respiratory infection, unspecified mita Followup: mita - With: Private Physician - When: 2 - 3 days - Reason: Recheck today's complaints, Re-evaluation by your physician Discharge Instructions: - Discharge Summary Sheet mita - Pharyngitis mita - Sore Throat mita - Upper Respiratory Infection, Adult mita - Cool Mist Vaporizer mita - Pharyngitis, [id number] mita - Cough, Adult mita Forms: - Medication Reconciliation Form mita - Thank You Letter mita - Antibiotic Education mita - Prescription Opioid Use mita - Patient Portal Instructions mita - Leadership Thank You Letter [facility] Prescriptions: - Tessalon Perles 100 mg Oral capsule - take 2 capsules ORAL route every 8 hours As needed; 30 capsule; Refills: 0, mita Product Selection Permitted - Zithromax Z-Mumtaz 250 mg Oral tablet - take 1 tablet ORAL route as directed for 5 days Day 1 - take two (2) tablets mita one time. Day 2, 3, 4 , 5 take one (1) tablet once daily.; 6 tablet; Refills: 0, Product Selection Permitted - Medrol (Mumtaz) 4 mg Oral Tablets, Dose Pack - take 1 tablet ORAL route as directed - follow package instructions; 1 packet; mita Refills: 0, Product Selection Permitted Signatures: Dispatcher [employer] Prosper Khalil MD MD cha Oliver, Kathy RN RN ko1 Corrections: (The following items were deleted from the chart) 14: 14:27 PSHx: gastric bypass (hysterectomy); ko1 ko1 14: 14:27 PSHx: gastric bypass (hysterectomy); ko1 ko1
[2023-07-12 17:07] VITALS: BP 124/85; TEMP 98; O2SAT 99
== END ==
LOC: ER 14:14
DX: J06.9 Acute upper respiratory infection, unspecified (principal); Z11.52 Encounter for screening for COVID-19; Z88.6 Allergy status to analgesic agent
CPT/HCPCS: 36415; 87070; 87081; 87804; 87811; 99284; J7512

== ENCOUNTER 2024-01-07 09:33 | Emergency (ER) | payer SELFPAY ==
--- NOTE | 2024-01-07 10:05 | ER ---
Nurse's Notes [facility] Name: Adela Jaime Age: 38 yrs Sex: Female : 1985 Arrival Date: 01/07/2024 Time: 09:33 Bed 10 Private MD: Diagnosis: Cat bite;Right middle finger laceration with nailbed involvement Presentation: 01/06 09:40 Chief complaint: Patient states: her cat bit her on right middle finger, puncture iw through the fingernail, she bot down 4-5 times , she has all her vaccinations. Coronavirus screen: At this time, the client does not indicate any symptoms associated with coronavirus-19. Ebola Screen: No symptoms or risks identified at this time. Initial Sepsis Screen: Does the patient meet any 2 criteria? No. Patient's initial sepsis screen is negative. Does the patient have a suspected source of infection? No. Patient's initial sepsis screen is negative. Risk Assessment: Do you want to hurt yourself or someone else? Patient reports no desire to harm self or others. Onset of symptoms was January 07, 2024. 09:40 Method Of Arrival: Ambulatory iw 09:40 Acuity: TARA 3 iw Triage Assessment: 10:00 Bite description: bite sustained to right middle fingernail and palmar aspect of distal iw phalanx of right middle finger and dorsal aspect of distal phalanx of right middle finger by a cat, animal information: vaccination(s) is current. General: Appears in no apparent distress. Behavior is calm, cooperative. 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 - Infectious Disease History:: Denies. - Social history:: Smoking status: . Screenin:56 [facility] ED Fall Risk Assessment (Adult) History of falling in the last 3 months, iw including since admission No falls in past 3 months (0 pts) Confusion or Disorientation No (0 pts) Intoxicated or Sedated No (0 pts) Impaired Gait No (0 pts) Mobility Assist Device Used No (0 pt) Altered Elimination No (0 pt) Score/Fall Risk Level 0 - 2 = Low Risk Oriented to surroundings, Maintained a safe environment. Abuse screen: Denies threats or abuse. Denies injuries from another. Nutritional screening: No deficits noted. Tuberculosis screening: No symptoms or risk factors identified. Assessment: 09:45 General: Appears uncomfortable, Behavior is calm, cooperative. Pain: Complains of pain iw in dorsal aspect of distal phalanx of right middle finger, palmar aspect of distal phalanx of right middle finger and right middle fingernail Pain currently is 8 out of 10 on a pain scale. Neuro: Level of Consciousness is awake, alert, obeys commands, Oriented to person, place, time, situation, Moves all extremities. Full function. Respiratory: Airway is patent Respiratory effort is even, unlabored. Derm: Skin is healthy with good turgor, Skin is pink, warm \T\ dry. Injury Description: Bite sustained to dorsal aspect of distal phalanx of right middle finger and palmar aspect of distal phalanx of right middle finger caused by a cat, is puncture. Vital Signs: 09:40 BP 144 / 106; Pulse 59; Resp 16; Temp 97.9; Pulse Ox 99% on R/A; Weight 103.42 kg; iw Height 5 ft. 0 in. ; Pain 8/10; 09:40 Body Mass Index 44.53 (103.42 kg, 152.4 cm) iw 09:40 Pain Scale: Adult iw ED Course: 09:35 Patient arrived in ED. mg5 09:38 Lacy Kevin MD is Attending Physician. sd2 09:41 Triage completed. iw 09:43 Arm band placed on. iw 09:45 Patient has correct armband on for positive identification. Provided Education on: . iw 10:12 Harika Saldivar, RN is Primary Nurse. iw 10:56 No provider procedures requiring assistance completed. Patient did not have IV access iw during this emergency room visit. Administered Medications: 10:26 Drug: Acetaminophen-Codeine PO (300 mg-30 mg) 1 tablet PO once; RASS on ADMIN: Combtv4, iw Very Agttd3, Agttd2, Rstlss1, AlertClm0, Drwsy-1, Lt Sdtn-2, Mod Sdtn-3, Dp Sdtn-4, UnArsble-5 Route: PO; 10:30 Follow up: Response: No adverse reaction; Medication administered at discharge. iw 10:26 Drug: Amoxicillin-Clavulanate PO 875 mg PO once Route: PO; iw 10:30 Follow up: Response: No adverse reaction; Medication administered at discharge. iw Medication: 10:00 VIS not applicable for this client. iw Outcome: 10:05 Discharge ordered by . sd2 10:56 Discharged to home ambulatory, with family, iw 10:56 Condition: good 10:56 Discharge instructions given to patient, family, Instructed on discharge instructions, follow up and referral plans. Demonstrated understanding of instructions, follow-up care, medications, wound care, Prescriptions given X 2, 10:57 Patient left the ED. iw Signatures: Harika Saldivar RN RN iw Lacy Kevin MD MD sd2 Angy Holloway mg5
--- NOTE | 2024-01-07 10:06 | EDPHYS ---
Physician Documentation [facility] Name: Adela Jaime Age: 38 yrs Sex: Female : 1985 Arrival Date: 01/07/2024 Time: 09:33 Bed 10 Private MD: ED Physician Lacy Kevin HPI: 01/06 10:00 This 38 yrs old Female presents to ER via Ambulatory with complaints of Cat Bite. sd2 10:00 38 yo F presents with CC of cat bite by her own house cat who was being taken out of sd2 the kennel while moving and bit through her nail on the right 3rd digit and the finger itself. She reports pain to the area and bleeding under control. . 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 - Infectious Disease History:: Denies. - Social history:: Smoking status: . ROS: 10:01 Constitutional: Negative for fever, chills, and weight loss, MS/Extremity: Positive for sd2 injury and negative for deformity Skin: Positive for injury, Negative for rash, and discoloration, Exam: 10:01 Constitutional: This is a well developed, well nourished patient who is awake, alert, sd2 and in no acute distress. Head/Face: Normocephalic, atraumatic. Skin: Warm, dry with normal turgor. Normal color with no rashes, no lesions, and no evidence of cellulitis. Puncture wound noted through and through the right 3rd nailbed and finger pad with controlled bleeding. Superficial small 1cm laceration noted also just inferior to the DIP joint on the dorsal aspect. MS/ Extremity: Pulses equal, no cyanosis. Neurovascular intact. Full, normal range of motion. Psych: Awake, alert, with orientation to person, place and time. Behavior, mood, and affect are within normal limits. Vital Signs: 09:40 BP 144 / 106; Pulse 59; Resp 16; Temp 97.9; Pulse Ox 99% on R/A; Weight 103.42 kg; iw Height 5 ft. 0 in. ; Pain 8/10; 09:40 Body Mass Index 44.53 (103.42 kg, 152.4 cm) iw 09:40 Pain Scale: Adult iw MDM: 09:59 Patient medically screened. sd2 10:01 Differential diagnosis: superficial laceration, tendon injury, vascular injury, rabies, sd2 cellulitis, among others. Data reviewed: vital signs, nurses notes. I considered the following discharge prescriptions or medication management in the emergency department Medications were administered in the Emergency Department. See MAR. Historians other than the Patient: Parent: mother at . Care significantly affected by the following chronic conditions: Hypertension. Counseling: I had a detailed discussion with the patient and/or guardian regarding the historical points, exam findings, and any diagnostic results supporting the discharge/admit diagnosis, the need for outpatient follow up, to return to the emergency department if symptoms worsen or persist or if there are any questions or concerns that arise at home. Refusal of service: The patient/guardian displays adequate decision making capability and despite a detailed discussion of alternatives, benefits, risks, and consequences refuses: Discussed potential benefits of XR but pt declines with minimal concern for FB or fracture at this time. ED course: Pain control given. Wound irrigated thoroughly. Cat's vaccinations are UTD per patient. Augmentin given and patient to continue supportive care at home and follow up for a wound recheck with PCP. Verbalizes understanding of strict return precautions.. 18 10:00 Order name: Wound Care; Complete Time: 10:36 sd2 Administered Medications: 10:26 Drug: Acetaminophen-Codeine PO (300 mg-30 mg) 1 tablet PO once; RASS on ADMIN: Combtv4, iw Very Agttd3, Agttd2, Rstlss1, AlertClm0, Drwsy-1, Lt Sdtn-2, Mod Sdtn-3, Dp Sdtn-4, UnArsble-5 Route: PO; 10:30 Follow up: Response: No adverse reaction; Medication administered at discharge. iw 10:26 Drug: Amoxicillin-Clavulanate PO 875 mg PO once Route: PO; iw 10:30 Follow up: Response: No adverse reaction; Medication administered at discharge. iw Disposition Summary: 01/07/24 10:05 Discharge Ordered Problem: new sd2 Symptoms: have improved sd2 Condition: Stable sd2 Diagnosis - Cat bite sd2 - Right middle finger laceration with nailbed involvement sd2 Followup: sd2 - With: Private Physician - When: 5 - 6 days - Reason: Wound Recheck Discharge Instructions: - Discharge Summary Sheet sd2 - Laceration Care, Adult sd2 - Nail Bed Injury sd2 - Animal Bite, Adult sd2 Forms: - Work release form iw - Medication Reconciliation Form sd2 - Antibiotic Education sd2 - Prescription Opioid Use sd2 - Patient Portal Instructions sd2 - Leadership Thank You Letter sd2 Prescriptions: - acetaminophen-codeine 300-30 mg Oral tablet - take 1 tablet ORAL route every 6 hours as needed for pain; 7 tablet; Refills: sd2 0, Product Selection Permitted - Augmentin 875-125 mg Oral Tablet - take 1 tablet ORAL route every 12 hours for 10 days; 20 tablet; Refills: 0, sd2 Product Selection Permitted Signatures: Harika Saldivar RN RN Lacy Kevin MD MD sd2 Corrections: (The following items were deleted from the chart) 10:01 10:00 38 yo F presents with CC of cat bite by her own house cat who was being taken out sd2 of the kennel while moving and bit through her nail on the right 3rd digit. . sd2
[2024-01-07] MEDS ORDERED: CODEINE 30MG/APAP 300MG TAB ONE (10:13)
[2024-01-07] MEDS ORDERED: AMOX/K CLAV 875 MG TAB ONE (10:13)
[2024-01-07 11:04] VITALS: BP 144/106; TEMP 97.9; O2SAT 99
== END 2024-01-07 10:57 | disposition home or self-care (01) ==
LOC: ER 09:33
DX: S61.352A Open bite of right middle finger with damage to nail, initial encounter (principal); W55.01XA Bitten by cat, initial encounter; I10 Essential (primary) hypertension; F41.9 Anxiety disorder, unspecified; F32.A Depression, unspecified; Z79.899 Other long term (current) drug therapy; Z88.8 Allergy status to other drugs, medicaments and biological substances
CPT/HCPCS: 99283

== ENCOUNTER 2024-07-13 21:37 | Emergency (ER) | payer SELFPAY ==
[2024-07-13 23:13] LABS: Absolute Basophils 0.1 K/uL (0-0.5); Absolute Eosinophils 0.2 K/uL (0-0.5); Absolute Lymphocytes (CBC) 2.8 K/uL (0.7-4.9); Absolute Monocytes 0.6 K/uL (0.1-1.3); Absolute Neutrophil 4.6 K/uL (1.8-8.0); Basophils % 0.6 % (0-1.3); Eosinophils % 2.1 % (0-4.4); Hematocrit 38.2 % (36.0-45.0); Hemoglobin 13.2 g/dL (12.0-15.0); Lymphocytes % 33.5 % (15.3-44.8); MCH 30.3 pg (27.0-35.0); MCHC 34.5 g/dL (32.0-36.0); MCV 87.8 fL (80-100); MPV 9.5 fL (7.6-11.3); Monocytes % 7.3 % (3.3-12.3); Neutrophils % 56.5 % (41.7-73.7); Nucleated Red Blood Cells % 0.1 % (0-0); Platelets 311 thou/uL (152-406); RBC Red Blood Cell Count 4.35 M/uL (3.86-4.86)
[2024-07-13 23:31] LABS: Albumin 3.7 g/dL (3.4-5.0); Albumin/Globulin Ratio 0.9 (1.1-1.8); Anion Gap 9.6 mEq/L (5.0-15.0); Bilirubin Total 0.3 mg/dL (0.2-1.0); Globulin 3.9 g/dL (2.3-3.5); Potassium 3.6 mEq/L (3.5-5.1); Protein, Total 7.6 g/dL (6.4-8.2)
--- NOTE | 2024-07-13 23:35 | RAD REPORT ---
EXAM: CT Head Brain Wo Cont HISTORY: HEADACHE COMPARISON: None TECHNIQUE: Multiple contiguous axial images were obtained for a CT of the brain without contrast. Sag ittal and coronal reformats were performed. One or more of the following dose reduction techniques were used: Automated exposure control, adjus tment of the mA and kV according to patient size, and iterative reconstruction. Unless otherwise specified, incidental findings do not require dedicated imaging follow-up. FINDINGS: No evidence of hydrocephalus, intracranial hemorrhage, or extra-axial fluid collection. The brain is normal in morphology. The calvarium is intact. The visualized paranasal sinuses and mastoid air cells are essentially clear . IMPRESSION: No evidence of acute intracranial abnormality.
[2024-07-13] MEDS ORDERED: KETOROLAC 30 MG/ML INJ ONE (23:57)
[2024-07-13] MEDS ORDERED: dexAMETHasone 10 MG/ML VIAL ONE (23:57)
[2024-07-13] MEDS ORDERED: DIPHENHYDRAMINE 50 MG/ML VIAL ONE (23:58)
[2024-07-13] MEDS ORDERED: METOCLOPRAMIDE 10 MG/2mL INJ ONE (23:58)
[2024-07-13] MEDS ORDERED: NA CHLORIDE 0.9% 1,000 ML ONE (23:58)
--- NOTE | 2024-07-14 00:32 | EDPHYS ---
Physician Documentation [facility] Name: Adela Jaime Age: 38 yrs Sex: Female : 1985 Arrival Date: 07/13/2024 Time: 21:37 Bed 25 Private MD: ED Physician Bryan Vicente HPI: 07/13 23:20 This 38 yrs old Female presents to ER via Ambulatory with complaints of Headache, Pain. kb 23:20 Patient is a 38-year-old female who presents for headache to front of head that kb radiates to back of neck. States headache started 3 days ago. States she has sharp pains when she moves her head.. 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 - Infectious Disease History:: Denies. - Social history:: Smoking status: Patient denies any tobacco usage or history of. ROS: 23:21 Constitutional: As per HPI kb Exam: 23:21 Constitutional: This is a well developed, well nourished patient who is awake, alert, kb and in no acute distress. Head/Face: Normocephalic, atraumatic. ENT: Moist Mucous membranes Cardiovascular: Regular rate Respiratory: Respirations even and unlabored. No increased work of breathing. Talking in full sentences Skin: Warm, dry with normal turgor. Normal color. MS/ Extremity: Pulses equal, no cyanosis. Neurovascular intact. Full, normal range of motion. Neuro: Awake and alert, GCS 15, oriented to person, place, time, and situation. Vital Signs: 21:49 BP 160 / 122; Pulse 54; Resp 16; Temp 98.6; Pulse Ox 100% ; Weight 104.33 kg; Height 5 me1 ft. 0 in. ; Pain 7/10; 07/14 00:08 BP 157 / 106; Pulse 86; Resp 16; Pulse Ox 97% on R/A; jb4 00:52 BP 149 / 101; Pulse 89; Resp 16; Pulse Ox 98% on R/A; jb4 07/13 21:49 Body Mass Index 44.92 (104.33 kg, 152.4 cm) me1 07/13 21:49 Pain Scale: Adult me1 Nate Coma Score: 07/13 23:21 Eye Response: spontaneous(4). Motor Response: obeys commands(6). Verbal Response: kb oriented(5). Total: 15. MDM: 21:43 Medical Screening Exam initiated kb 23:21 Differential diagnosis: intracerebral hemorrhage, migraine, tension headache. Data kb reviewed: vital signs, nurses notes. 07/14 00:31 Counseling: I had a detailed discussion with the patient and/or guardian regarding the kb historical points, exam findings, and any diagnostic results supporting the discharge/admit diagnosis, lab results, radiology results, the need for outpatient follow up, a family practitioner, to return to the emergency department if symptoms worsen or persist or if there are any questions or concerns that arise at home. 07/13 21:58 Order name: CBC with Diff; Complete Time: 23:37 kb 07/13 21:58 Order name: CMP; Complete Time: 23:31 kb 07/13 21:58 Order name: CT Head Brain wo Cont; Complete Time: 23:35 kb 07/13 21:58 Order name: IV Start; Complete Time: 23:08 kb Administered Medications: 00:08 Drug: Ketorolac IVP 15 mg IVP once Route: IVP; Site: left antecubital; 4 00:57 Follow up: Response: No adverse reaction 00:09 Drug: NS 0.9% IV 1000 ml IV at 1000 ml once; to be given as a bolus over 60 minutes [facility] Route: IV; Rate: 1000 ml; Site: left antecubital; 00:57 Follow up: Response: No adverse reaction; IV Status: pt d/c'ed; IV Intake: 300ml ; Pt jb4 discharged 00:09 Drug: metoCLOPramide IVP 10 mg IVP once; over 1 to 2 minutes Route: IVP; Site: left 4 antecubital; 00:57 Follow up: Response: No adverse reaction [facility] 00:09 Drug: diphenhydrAMINE IVP 12.5 mg IVP once Route: IVP; Site: left antecubital; 4 00:57 Follow up: Response: No adverse reaction jb4 00:09 Drug: Decadron - Dexamethasone IVP 10 mg IVP once Route: IVP; Site: left antecubital; jb4 00:57 Follow up: Response: No adverse reaction jb4 Disposition: 20:23 Co-signature as Attending Physician, Bryan Vicente MD I agree with the assessment sp4 and plan of care. I reviewed the patient's care provided by the Advanced Practice Provider and agree with the diagnosis and treatment plan. Disposition Summary: 07/14/24 00:31 Discharge Ordered Notes: Location: Home kb Condition: Stable kb Diagnosis - Headache kb Followup: kb - With: Emergency Department - When: As needed - Reason: Worsening of condition Followup: kb - With: Private Physician - When: 2 - 3 days - Reason: Recheck today's complaints, Continuance of care, Re-evaluation by your physician Discharge Instructions: - Discharge Summary Sheet kb - General Headache Without Cause, [id number] kb Forms: - Medication Reconciliation Form kb - Antibiotic Education kb - Prescription Opioid Use kb - Patient Portal Instructions kb - Leadership Thank You Letter kb Signatures: Dispatcher [employer] EDMS Deanna Garcia, SUPERVISOR FILM PROCESSING-C SUPERVISOR FILM PROCESSING-Rolando Dempsey RN RN jb4 Bryan Vicente MD MD sp4 Verona Dawkins RN RN me1 Corrections: (The following items were deleted from the chart) 07/13 23:21 23:20 Patient is a 38-year-old female who presents for headache to front of head that kb radiates to back of neck. States headache started. kb
--- NOTE | 2024-07-14 00:32 | ER ---
Nurse's Notes [facility] Name: Adela Jaime Age: 38 yrs Sex: Female : 1985 Arrival Date: 07/13/2024 Time: 21:37 Bed 25 Private MD: Diagnosis: Headache Presentation: 07/13 21:49 Chief complaint: Patient states: she had a bad sunburn on her face a few weeks ago. for me1 the past couple of days she has shooting pains that start at her forehead/hairline and radiate back over the top of her head back to her neck. Coronavirus screen: At this time, the client does not indicate any symptoms associated with coronavirus-19. Ebola Screen: No symptoms or risks identified at this time. Initial Sepsis Screen: Does the patient meet any 2 criteria? No. Patient's initial sepsis screen is negative. Does the patient have a suspected source of infection? No. Patient's initial sepsis screen is negative. Risk Assessment: Do you want to hurt yourself or someone else? Patient reports no desire to harm self or others. Onset of symptoms was July 10, 2024. 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 - Infectious Disease History:: Denies. - Social history:: Smoking status: Patient denies any tobacco usage or history of. Screenin/26 00:52 [facility] ED Fall Risk Assessment (Adult) History of falling in the last 3 months, jb4 including since admission No falls in past 3 months (0 pts) Confusion or Disorientation No (0 pts) Intoxicated or Sedated No (0 pts) Impaired Gait No (0 pts) Mobility Assist Device Used No (0 pt) Altered Elimination No (0 pt) Score/Fall Risk Level 0 - 2 = Low Risk Oriented to surroundings, Maintained a safe environment. Abuse screen: Denies threats or abuse. Nutritional screening: No deficits noted. Tuberculosis screening: No symptoms or risk factors identified. Assessment: 07/13 22:45 General: Appears in no apparent distress. uncomfortable, Behavior is calm, cooperative, jb4 appropriate for age. Pain: Complains of pain in headache Pain does not radiate. Pain currently is 9 out of 10 on a pain scale. Neuro: Level of Consciousness is awake, alert, obeys commands, Oriented to person, place, time, situation. Cardiovascular: Patient's skin is warm and dry. Respiratory: Airway is patent Respiratory effort is even, unlabored, Respiratory pattern is regular, symmetrical. Derm: Skin is intact, Skin is pink, warm \T\ dry. Musculoskeletal: Circulation, motion, and sensation intact. Range of motion: intact in all extremities. 07/14 00:08 Reassessment: Patient appears in no apparent distress at this time. Patient and/or jb4 family updated on plan of care and expected duration. Pain level reassessed. Patient is alert, oriented x 3, equal unlabored respirations, skin warm/dry/pink. 00:52 Reassessment: Patient appears in no apparent distress at this time. Patient and/or jb4 family updated on plan of care and expected duration. Pain level reassessed. Patient is alert, oriented x 3, equal unlabored respirations, skin warm/dry/pink. Vital Signs: 07/13 21:49 BP 160 / 122; Pulse 54; Resp 16; Temp 98.6; Pulse Ox 100% ; Weight 104.33 kg; Height 5 me1 ft. 0 in. ; Pain 7/10; 07/14 00:08 BP 157 / 106; Pulse 86; Resp 16; Pulse Ox 97% on R/A; jb4 00:52 BP 149 / 101; Pulse 89; Resp 16; Pulse Ox 98% on R/A; jb4 07/13 21:49 Body Mass Index 44.92 (104.33 kg, 152.4 cm) fl1 07/13 21:49 Pain Scale: Adult me1 Nate Coma Score: 07/13 23:21 Eye Response: spontaneous(4). Motor Response: obeys commands(6). Verbal Response: kb oriented(5). Total: 15. ED Course: 21:42 Patient arrived in ED. gm2 21:43 Deanna Garcia FNP-C is PHCP. kb 21:43 Bryan Vicente MD is Attending Physician. kb 21:56 Triage completed. me1 21:56 Arm band placed on Patient placed in waiting room. me1 22:24 CT Head Brain wo Cont In Process Unspecified. EDMS 23:08 Rolando Rawls, RN is Primary Nurse. jb4 23:08 CMP Sent. jb4 23:08 CBC with Diff Sent. jb4 07/14 00:52 Patient has correct armband on for positive identification. Bed in low position. Call jb4 light in reach. Side rails up X 1. Provided Education on: discharge instructions.. 00:52 No provider procedures requiring assistance completed. IV discontinued, intact, jb4 bleeding controlled, No redness/swelling at site. Pressure dressing applied. Administered Medications: 00:08 Drug: Ketorolac IVP 15 mg IVP once Route: IVP; Site: left antecubital; jb4 00:57 Follow up: Response: No adverse reaction jb4 00:09 Drug: NS 0.9% IV 1000 ml IV at 1000 ml once; to be given as a bolus over 60 minutes jb4 Route: IV; Rate: 1000 ml; Site: left antecubital; 00:57 Follow up: Response: No adverse reaction; IV Status: pt d/c'ed; IV Intake: 300ml ; Pt jb4 discharged 00:09 Drug: metoCLOPramide IVP 10 mg IVP once; over 1 to 2 minutes Route: IVP; Site: left jb4 antecubital; 00:57 Follow up: Response: No adverse reaction jb4 00:09 Drug: diphenhydrAMINE IVP 12.5 mg IVP once Route: IVP; Site: left antecubital; jb4 00:57 Follow up: Response: No adverse reaction jb4 00:09 Drug: Decadron - Dexamethasone IVP 10 mg IVP once Route: IVP; Site: left antecubital; jb4 00:57 Follow up: Response: No adverse reaction jb4 Medication: 00:52 VIS not applicable for this client. jb4 Intake: 00:57 IV: 300ml; Total: 300ml. jb4 Outcome: 00:31 Discharge ordered by . kb 00:52 Discharged to home ambulatory, jb4 00:52 Condition: stable 00:52 Discharge instructions given to patient, Instructed on discharge instructions, follow up and referral plans. Demonstrated understanding of instructions, follow-up care, 00:58 Patient left the ED. jb4 Signatures: Dispatcher [employer] Deanna Parra, RICARDO DUNHAM-Rolando Dempsey RN RN jb4 Verona Dawkins RN RN me1 Jessi Griggs gm2
[2024-07-14 01:09] VITALS: TEMP 98.6
[2024-07-14 01:18] VITALS: BP 149/101; O2SAT 98
== END 2024-07-14 00:58 | disposition home or self-care (01) ==
LOC: ER 21:37
DX: R51.9 Headache, unspecified (principal)
CPT/HCPCS: 36415; 70450; 80053; 85025; J1100; J1200; J2765; J7030